=== PATIENT | male | born 1980 | race African-American/Black ===

== ENCOUNTER 2017-11-04 22:09 | Inpatient (IN) ==
[2017-11-04] MEDS ORDERED: Naloxone Inj 2 MG/2 ML Vial IV.PUSH ONE (22:59)
[2017-11-04] MEDS ORDERED: Sod Chloride 0.9% Inj 1,000 ML IV.SIG ONE ×3 (23:07→23:45)
--- NOTE | 2017-11-04 23:07 | ED ---
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) Severity: severe Consistency of symptoms: getting worse Context: drug abuse Associated symptoms: denies other symptoms Related Data Home Medications Medication Instructions Recorded Confirmed Unable to Obtain Home Meds 11/05/17 11/05/17 Allergies Allergy/AdvReac Type Severity Reaction Status Date / Time No Allergy Information Allergy Unverified 11/05/17 02:16 Available Review of Systems ROS: all other systems reviewed are negative [facility] Social History Social History Recent Travel in [facility] within the Last 8 Weeks: No Recent Out of Country Travel within the Last 8 Weeks: No Exam Narrative Exam Narrative: GENERAL: male with no signs of life SKIn: dry, no lacerations/wounds noted. HEAD: Normocephalic. EYES: pupil dilated, fixed, no corneal reflex ENT: No nasal bleeding or discharge. Mucous membranes pink and moist. NECK: Trachea midline. No JVD. CARDIOVASCULAR: pulseless RESPIRATORY: apneic GASTROINTESTINAL: Abdomen soft, non-tender, nondistended. No rebound or guarding MUSCULOSKELETAL: Extremities without clubbing, cyanosis, or edema. No obvious deformities. NEUROLOGICAL: gcs 3t, Course Initial Documented Vital Signs Temperature 102.7 F H 11/04/17 22:19 Pulse Rate 132 H 11/04/17 22:19 Respiratory Rate 20 11/04/17 22:19 Pulse Oximetry 85 L 11/04/17 22:19 Last Documented Vital Signs Temperature 102.7 F H 11/04/17 22:35 Pulse Rate 135 H 11/04/17 22:50 Respiratory Rate 20 11/05/17 01:36 Blood Pressure 106/56 L 11/04/17 22:50 Pulse Oximetry 93 L 11/05/17 02:24 Procedures Intubation Sedative: none Laryngoscope: Jagjit (mac4) ET Tube Size: 7.5 ET Tube Uncuffed: Yes Tube Secured Depth (cm): 23 Tube Secured Location: lips Tube Placement Confirmation: visualized tube passing through cords Patient Tolerated Procedure: well Intubation Complications: none Additional Comments: directly supervised intubation by [place] Bang Critical Care Time Critical Care Time: Yes Total Critical Care Time: 60 Attestation: Aggregate critical care time was 60 minutes. Time to perform other separately billable procedures was not included in the critical care time. My time did not include minutes spent treating any other patients simultaneously or on activities that did not directly contribute to the patient's treatment. The services I provided to this patient were to treat and/or prevent clinically significant deterioration that could result in: [Patient was actively in full arrest without any interventions this patient would have within 5 minutes as he presented apneic pulseless and in asystole] I provided critical care services requiring my management, as noted below: Chart data review, documentation time, medication orders and management, vital sign assessments/reviewing monitor data, ordering and reviewing lab tests, ordering and interpreting/reviewing x-rays and diagnostic studies, care of the patient and discussion of the patient with the admitting physicians. NIH Stroke Scale NIH Stroke Scale Level of Consciousness: 3-Coma / Unresponsive Orientation Questions: 2-Neither task correct Responds to Commands: 2-Neither task correct Facial Movement: 0-Normal Motor Functions Arm LEFT: 3-No effort against gravity Motor Functions Arm RIGHT: 3-No effort against gravity Motor Functions Leg LEFT: 3-No effort against gravity Motor Functions Leg RIGHT: 3-No effort against gravity Sensory Loss: 2-Severe sensory loss Best Language: 3-Mute or global aphasia Articulation: UN-Intubated / Barriers Extinction or Inattention Sensory: 2-Loss 2 modalities Total: 26 Medical Decision Making MDM Narrative Medical decision making narrative: Chest x-ray read by radiologist show left basilar atelectasis versus airspace disease CT head has not been performed due to the patient's instability and unable to transfer to CT suite yet CBC shows no leukocytosis, no left shift, no anemia however some mild degree of hemoconcentration is noted, normal platelet count Coagulation profile is within normal limits Blood gas revealed acidosis with hypercapnia oxygen level PaO2 is 330 while on vent----patient's respiratory rate was adjusted increased to 18 to increase minute ventilation, as well as 2 amps of bicarb were given IV Elevated troponin 0.09 Elevated total CPK of 1648, elevated CK-MB, suggestive of non-STEMI Elevated sodium at 151, elevated potassium of 5.4, decreased GFR at 30, creatinine decrease I am sorry increase at 2.84 consistent with decrease activity Elevated ALT of 126 AST of 139 most likely consistent with shock liver secondary to arrest Ammonia elevated at 410 most consistent with shocky liver UA was noted for the presence of sperm, some bacteria as well as protein and RBCs. Tox screen was positive for cocaine Negative serum alcohol ct showed subarachnoid hemorrhage Differential Diagnosis Differential Diagnosis: Intracranial hemorrhage versus tox related cardiac arrest versus rhabdo versus STEMI versus non-STEMI versus dysrhythmia versus noncardiogenic pulmonary edema Lab Data Lab results reviewed: Yes I reviewed the patient's lab results. Result diagrams: 11/04/17 23:20 11/04/17 23:20 Lab Results 11/04/17 11/04/17 11/04/17 Range/Units 23:15 23:20 23:20 WBC 6.8 (4.0-11.0) th/mm3 RBC 5.16 (4.50-5.90) mil/mm3 Hgb 16.8 (13.0-17.0) gm/dL Hct 52.4 H (39.0-51.0) % MCV 101.7 H (80.0-100.0) fL MCH 32.5 (27.0-34.0) pg MCHC 32.0 (32.0-36.0) % RDW 16.0 (11.6-17.2) % Plt Count 405 (150-450) th/mm3 MPV 9.1 (7.0-11.0) fL Neut % (Auto) 49.7 (16.0-70.0) % Lymph % (Auto) 39.0 (9.0-44.0) % [place] % (Auto) 10.5 H (0.0-8.0) % Eos % (Auto) 0.4 (0.0-4.0) % Baso % (Auto) 0.4 (0.0-2.0) % Neut # (Auto) 3.4 (1.8-7.7) th/mm3 Lymph # (Auto) 2.6 (1.0-4.8) th/mm3 [place] # (Auto) 0.7 (0.0-0.9) th/mm3 Eos # (Auto) 0.0 (0.0-0.4) th/mm3 Baso # (Auto) 0.0 (0.0-0.2) th/mm3 WBC Differential . Differential Comment Auto diff final PT (9.8-11.6) sec INR Ratio APTT (24.3-30.1) sec Puncture Site Left radial Patient Temperature 98.6 O2 Saturation 98 (90-100) % ABG pH 6.99 L* (7.380-7.420) ABG pCO2 66 H* (38-42) mmHg ABG pO2 330 H (61-120) mmHg ABG HCO3 15 L* (22-26) mmol/L ABG O2 Content 18.1 (12.0-20.0) Vol % ABG Base Excess -14.6 L (-2-2) mmol/L ABG Methemoglobin 0.9 (0-2) % Dmitry Test Present Hemoglobin 12.6 (12.0-16.0) G/DL Carboxyhemoglobin 0.2 (0-4) % O2 Delivery Device Vent Vent Setting Prvc/ac Inspired O2 100 % Critical Value Yes Sodium 151 H (136-145) meq/L Potassium 5.4 H (3.5-5.1) meq/L Chloride 108 H (98-107) meq/L Carbon Dioxide 14.3 L (21.0-32.0) meq/L Anion Gap 29 H (5-15) meq/L BUN 9 (7-18) mg/dL Creatinine 2.84 H (0.60-1.30) mg/dL Estimated GFR 30 L (>89) mL/min Random Glucose 102 (74-106) mg/dL Calcium 11.5 H (8.5-10.1) mg/dL Total Bilirubin 1.1 H (0.2-1.0) mg/dL AST 139 H (15-37) U/L ALT 126 H (12-78) U/L Alkaline Phosphatase 93 (45-117) U/L Ammonia (11-32) mcmol/L Total Creatine Kinase 1648 H (39-308) U/L CK-MB (CK-2) 4.8 H (0.5-3.6) ng/mL CK-MB (CK-2) % 0.3 (0.0-4.0) % Troponin I 0.09 H (0.02-0.05) ng/mL Total Protein 9.7 H (6.4-8.2) g/dL Albumin 4.8 (3.4-5.0) g/dL TSH 1.130 (0.358-3.740) uIU/mL Urine Color (Yellw/Straw) Urine Clarity (Clear) Urine pH (5.0-8.5) Ur Specific [place] (1.002-1.035) Urine Protein (Neg-Trace) mg/dL Urine Glucose (UA) (Negative) mg/dL Urine Ketones (Negative) mg/dL Urine Occult Blood (Negative) Urine Nitrate (Negative) Urine Bilirubin (Negative) Urine Urobilinogen (Less than 2) mg/dL Ur Leukocyte Esterase (Negative) Urine RBC (0-3) /hpf Urine WBC (0-5) /hpf Amorphous Sediment (None) /hpf Urine Bacteria (None) /hpf Hyaline Casts (0-3) /lpf Urine Mucus (Occasional) /lpf Urine Sperm (None) /hpf Micro UA Comment Urine Culture Comments Urine Opiates Screen (Neg) Ur Barbiturates Screen (Neg) Ur Amphetamines Screen (Neg) U Benzodiazepines Scrn (Neg) Urine Cocaine Screen (Neg) U Cannabinoids Screen (Neg) Serum Alcohol 7 H (0-5) mg/dL Blood Type Blood Type Recheck Antibody Screen 11/04/17 11/04/17 11/04/17 Range/Units 23:20 23:20 23:20 WBC (4.0-11.0) th/mm3 RBC (4.50-5.90) mil/mm3 Hgb (13.0-17.0) gm/dL Hct (39.0-51.0) % MCV (80.0-100.0) fL MCH (27.0-34.0) pg MCHC (32.0-36.0) % RDW (11.6-17.2) % Plt Count (150-450) th/mm3 MPV (7.0-11.0) fL Neut % (Auto) (16.0-70.0) % Lymph % (Auto) (9.0-44.0) % [place] % (Auto) (0.0-8.0) % Eos % (Auto) (0.0-4.0) % Baso % (Auto) (0.0-2.0) % Neut # (Auto) (1.8-7.7) th/mm3 Lymph # (Auto) (1.0-4.8) th/mm3 [place] # (Auto) (0.0-0.9) th/mm3 Eos # (Auto) (0.0-0.4) th/mm3 Baso # (Auto) (0.0-0.2) th/mm3 WBC Differential Differential Comment PT (9.8-11.6) sec INR Ratio APTT (24.3-30.1) sec Puncture Site Patient Temperature O2 Saturation (90-100) % ABG pH (7.380-7.420) ABG pCO2 (38-42) mmHg ABG pO2 (61-120) mmHg ABG HCO3 (22-26) mmol/L ABG O2 Content (12.0-20.0) Vol % ABG Base Excess (-2-2) mmol/L ABG Methemoglobin (0-2) % Dmitry Test Hemoglobin (12.0-16.0) G/DL Carboxyhemoglobin (0-4) % O2 Delivery Device Vent Setting Inspired O2 % Critical Value Sodium (136-145) meq/L Potassium (3.5-5.1) meq/L Chloride (98-107) meq/L Carbon Dioxide (21.0-32.0) meq/L Anion Gap (5-15) meq/L BUN (7-18) mg/dL Creatinine (0.60-1.30) mg/dL Estimated GFR (>89) mL/min Random Glucose (74-106) mg/dL Calcium (8.5-10.1) mg/dL Total Bilirubin (0.2-1.0) mg/dL AST (15-37) U/L ALT (12-78) U/L Alkaline Phosphatase (45-117) U/L Ammonia 410 H (11-32) mcmol/L Total Creatine Kinase (39-308) U/L CK-MB (CK-2) (0.5-3.6) ng/mL CK-MB (CK-2) % (0.0-4.0) % Troponin I (0.02-0.05) ng/mL Total Protein (6.4-8.2) g/dL Albumin (3.4-5.0) g/dL TSH (0.358-3.740) uIU/mL Urine Color (Yellw/Straw) Urine Clarity (Clear) Urine pH (5.0-8.5) Ur Specific [place] (1.002-1.035) Urine Protein (Neg-Trace) mg/dL Urine Glucose (UA) (Negative) mg/dL Urine Ketones (Negative) mg/dL Urine Occult Blood (Negative) Urine Nitrate (Negative) Urine Bilirubin (Negative) Urine Urobilinogen (Less than 2) mg/dL Ur Leukocyte Esterase (Negative) Urine RBC (0-3) /hpf Urine WBC (0-5) /hpf Amorphous Sediment (None) /hpf Urine Bacteria (None) /hpf Hyaline Casts (0-3) /lpf Urine Mucus (Occasional) /lpf Urine Sperm (None) /hpf Micro UA Comment Urine Culture Comments Urine Opiates Screen Neg (Neg) Ur Barbiturates Screen Neg (Neg) Ur Amphetamines Screen Neg (Neg) U Benzodiazepines Scrn Neg (Neg) Urine Cocaine Screen Pos H (Neg) U Cannabinoids Screen Neg (Neg) Serum Alcohol (0-5) mg/dL Blood Type O Positive Blood Type Recheck Required Antibody Screen Negative 11/04/17 11/04/17 Range/Units 23:20 23:54 WBC (4.0-11.0) th/mm3 RBC (4.50-5.90) mil/mm3 Hgb (13.0-17.0) gm/dL Hct (39.0-51.0) % MCV (80.0-100.0) fL MCH (27.0-34.0) pg MCHC (32.0-36.0) % RDW (11.6-17.2) % Plt Count (150-450) th/mm3 MPV (7.0-11.0) fL Neut % (Auto) (16.0-70.0) % Lymph % (Auto) (9.0-44.0) % [place] % (Auto) (0.0-8.0) % Eos % (Auto) (0.0-4.0) % Baso % (Auto) (0.0-2.0) % Neut # (Auto) (1.8-7.7) th/mm3 Lymph # (Auto) (1.0-4.8) th/mm3 [place] # (Auto) (0.0-0.9) th/mm3 Eos # (Auto) (0.0-0.4) th/mm3 Baso # (Auto) (0.0-0.2) th/mm3 WBC Differential Differential Comment PT 13.7 H (9.8-11.6) sec INR 1.4 Ratio APTT 27.5 (24.3-30.1) sec Puncture Site Patient Temperature O2 Saturation (90-100) % ABG pH (7.380-7.420) ABG pCO2 (38-42) mmHg ABG pO2 (61-120) mmHg ABG HCO3 (22-26) mmol/L ABG O2 Content (12.0-20.0) Vol % ABG Base Excess (-2-2) mmol/L ABG Methemoglobin (0-2) % Dmitry Test Hemoglobin (12.0-16.0) G/DL Carboxyhemoglobin (0-4) % O2 Delivery Device Vent Setting Inspired O2 % Critical Value Sodium (136-145) meq/L Potassium (3.5-5.1) meq/L Chloride (98-107) meq/L Carbon Dioxide (21.0-32.0) meq/L Anion Gap (5-15) meq/L BUN (7-18) mg/dL Creatinine (0.60-1.30) mg/dL Estimated GFR (>89) mL/min Random Glucose (74-106) mg/dL Calcium (8.5-10.1) mg/dL Total Bilirubin (0.2-1.0) mg/dL AST (15-37) U/L ALT (12-78) U/L Alkaline Phosphatase (45-117) U/L Ammonia (11-32) mcmol/L Total Creatine Kinase (39-308) U/L CK-MB (CK-2) (0.5-3.6) ng/mL CK-MB (CK-2) % (0.0-4.0) % Troponin I (0.02-0.05) ng/mL Total Protein (6.4-8.2) g/dL Albumin (3.4-5.0) g/dL TSH (0.358-3.740) uIU/mL Urine Color [place] (Yellw/Straw) Urine Clarity Cloudy H (Clear) Urine pH 6.0 (5.0-8.5) Ur Specific [place] 1.028 (1.002-1.035) Urine Protein 100 H (Neg-Trace) mg/dL Urine Glucose (UA) Negative (Negative) mg/dL Urine Ketones Trace (Negative) mg/dL Urine Occult Blood Negative (Negative) Urine Nitrate Negative (Negative) Urine Bilirubin Negative (Negative) Urine Urobilinogen 4 or greater (Less than 2) mg/dL Ur Leukocyte Esterase Negative (Negative) Urine RBC 16 H (0-3) /hpf Urine WBC 21 H (0-5) /hpf Amorphous Sediment Few H (None) /hpf Urine Bacteria Occasional H (None) /hpf Hyaline Casts 35 (0-3) /lpf Urine Mucus Many H (Occasional) /lpf Urine Sperm Occasional H (None) /hpf Micro UA Comment Cath-culture ind Urine Culture Comments Cath-cult indicated Urine Opiates Screen (Neg) Ur Barbiturates Screen (Neg) Ur Amphetamines Screen (Neg) U Benzodiazepines Scrn (Neg) Urine Cocaine Screen (Neg) U Cannabinoids Screen (Neg) Serum Alcohol (0-5) mg/dL Blood Type Blood Type Recheck Antibody Screen Imaging Data Radiologist's impression: Chest X-Ray 11/04/17 22:59 CONCLUSION: Left basilar atelectasis versus airspace disease. Head CT 11/05/17 22:59 CONCLUSION: 1. Subarachnoid hemorrhage and cerebral edema suspected. . ECG Data EKG Prior to Arrival: No Attestation: I personally reviewed and interpreted this ECG as follows: Prior ECG tracings: not available for review Interpretation: Initial EKG shows sinus tachycardia 133, with diffuse ST depressions throughout all leads with the exception of V1 were ST elevation was noted but no ST elevations noted on V2. A repeat EKG with posterior leads was not were performed in which no ST elevations were noted therefore no evidence of any posterior MN was noted. Discharge Plan Discharge Disposition Patient Disposition: 30 Still Patient Discharge Condition Condition: Critical Discharge Details Diagnosis: Cardiopulmonary arrest with successful resuscitation, Cocaine abuse with intoxication, Acute renal insufficiency, Rhabdomyolysis, Non-ST elevated myocardial infarction (non-STEMI), Acute spontaneous subarachnoid intracranial hemorrhage Physicians Team ED Provider: Luis Zayas Primary Care Provider: Primary Care Jen Hodges Attending Provider: Frankie Cast ED Status: Admitted Patient
[2017-11-04] MEDS ORDERED: Sodium Bicarbonate 8.4% Inj 50 MEQ/50 ML Syringe IV.PUSH ONE (23:29)
[2017-11-04 23:42] LABS: Baso % (Auto) 0.4 % (0.0-2.0); Eos % (Auto) 0.4 % (0.0-4.0); Hematocrit 52.4 % (39.0-51.0); Hemoglobin 16.8 gm/dL (13.0-17.0); Lymph # (Auto) 2.6 th/mm3 (1.0-4.8); Mean Corpuscular Hemoglobin 32.5 pg (27.0-34.0); Mean Corpuscular Volume 101.7 fL (80.0-100.0); Mean Platelet Volume 9.1 fL (7.0-11.0); Mono # (Auto) 0.7 th/mm3 (0.0-0.9); Mono % (Auto) 10.5 % (0.0-8.0); Neut # (Auto) 3.4 th/mm3 (1.8-7.7); Neut % (Auto) 49.7 % (16.0-70.0); Platelet Count 405 th/mm3 (150-450); Red Blood Count 5.16 mil/mm3 (4.50-5.90); White Blood Count 6.8 th/mm3 (4.0-11.0)
--- NOTE | 2017-11-04 23:42 | XR ---
EXAM DATE: 11/04/2017 11:33 PM EDT AGE/SEX: 37 years / Male INDICATIONS: Post intubation. CLINICAL DATA: This is the patient's initial encounter. Patient reports that signs and symptoms have been present for 1 day and indicates a pain score of 0/10. MEDICAL/SURGICAL HISTORY: None. None. COMPARISON: [facility] [place], CHEST SINGLE AP, 01/29/2016. . FINDINGS: There is patchy atelectasis or airspace disease in the left lower lobe. Cardiomediastinal silhouette is unremarkable. Endotracheal tube tip terminates 2.4 cm above the xavi. The osseous structures are intact. CONCLUSION: Left basilar atelectasis versus airspace disease. Electronically signed by: Jordi Chua MD 11/04/2017 11:41 PM EDT
[2017-11-04] MEDS ORDERED: DOPamine 800 MG/500 ML Premix 800 MG/500 ML PLAST..BAG IV.CONT PRN (23:45)
[2017-11-04 23:49] LABS: Amphetamine Screen,Urine Neg (Neg); Barbiturate Screen,Urine Neg (Neg); Cannabinoid Screen,Urine Neg (Neg); Cocaine Screen,Urine Pos (Neg)
[2017-11-04 23:51] LABS: ABG Base Excess -14.6 mmol/L (-2-2); ABG PCO2 66 mmHg (38-42); ABG PO2 330 mmHg (61-120)
[2017-11-04 23:52] LABS: Amorphous Sediment,Urine Few /hpf; Bacteria,Urine Occasional /hpf; Bilirubin,Urine Negative (Negative); Clarity,Urine Cloudy (Clear); Color,Urine Amber (Yellw/Straw); Glucose,Urine (UA) Negative (Negative); Hyaline Casts,Urine 35 /lpf (0-3); Leukocyte Esterase,Urine Negative (Negative); Mucus,Urine Many /lpf (Occasional); Nitrite,Urine Negative (Negative); Opiate Screen,Urine Neg (Neg); Specific Gravity,Urine 1.028 (1.002-1.035); Sperm,Urine Occasional /hpf; Urobilinogen,Urine 4 or Greater mg/dL (Less than 2)
[2017-11-05] LABS: Albumin 4.8 g/dL (3.4-5.0); Anion Gap 29 meq/L (5-15); Aspartate Aminotransferase 139 U/L (15-37); Blood Urea Nitrogen 9 mg/dL (7-18); Calcium 11.5 mg/dL (8.5-10.1); Carbon Dioxide 14.3 meq/L (21.0-32.0); Chloride 108 meq/L (98-107); Glomerular Filtration Rate 30 mL/min (>89); Glucose,Random 102 mg/dL (74-106); Potassium 5.4 meq/L (3.5-5.1); Sodium 151 meq/L (136-145)
[2017-11-05 00:06] LABS: Alcohol 7 mg/dL (0-5)
[2017-11-05 00:09] LABS: Activated Partial Thrombo Time 27.5 sec (24.3-30.1); INR 1.4 Ratio; Prothrombin Time 13.7 sec (9.8-11.6)
[2017-11-05 00:15] LABS: Alanine Aminotransferase 126 U/L (12-78); Alkaline Phosphatase 93 U/L (45-117); Creatine Kinase 1648 U/L (39-308); Total Protein 9.7 g/dL (6.4-8.2); Troponin I 0.09 ng/mL (0.02-0.05)
[2017-11-05 00:27] LABS: CKMB Percent 0.3 % (0.0-4.0); Creatine Kinase MB 4.8 ng/mL (0.5-3.6)
[2017-11-05] MEDS ORDERED: Acetaminophen 325 MG Tablet PO PRN (01:26)
[2017-11-05] MEDS ORDERED: Sod Chloride 0.9% Inj 1,000 ML IV.CONT SCH (01:30)
--- NOTE | 2017-11-05 02:12 | P.HPCC ---
History of Present Illness Service: critical care medicine Primary Care Physician: No Primary Care Physician Chief Complaint: cardiac arrest, cocaine positive History of Present Illness: 37-year-old male who was brought to the ER by police officers. Per police officers they were called to the scene for patient for person that apparently was breaking and entering yelling "its not my gun" repetitive and jumpy/excited/agitated....once they placed him in coppersmith helper cruiser he started kicking the doors, very violent....once he arrived to [facility] entrance, patient was being placed in restraints, and once placed on guerney he went "Limp" and cpr was started by brazing machine feeder. Patient was intubated by ER physician and ACLS protocol was continued for asystole. He had return of spontaneous circulation following 20 minutes of CPR/ACLS. Patient was hypotensive following return of spontaneous circulation and received 3 L normal saline bolus and was started on dopamine for pressor support. He had a GCS of 3T per ER physician subsequently and was placed on mechanical ventilation. Patient was positive for cocaine on his tox screen. He was accepted for admission by critical care medicine service. When I evaluated him in the ER he was comatose, orally intubated on mechanical ventilation. History was obtained by reviewing records and discussion with ER physician and nursing staff. Inpatient Certification: I certify that the inpatient services were ordered in accordance with Medicare regulations governing the order. This includes certification that hospital inpatient services are reasonable and necessary and in the case of services not specified as inpatient-only under 42 CFR 419.22(n), that they are appropriately provided as inpatient services in accordance to with the 2-midnight benchmark under 43 CFR 412.3(e) Estimated Total Length of Stay (Days): 7 Plans for Post Hospital Care: Not yet determined Review of Systems unobtainable due to endotracheal tube PMFSH - Travel History Recent Travel in the [place] Within the Last 8 Weeks: No Recent Travel Out of the Country Within the Last 8 Weeks: No Medications and Allergies Active Medications: Active Medications Acetaminophen (Tylenol) 650 mg PO Q6H PRN PRN Reason: PAIN 1-10 AND/OR FEVER >101F Albuterol (Duoneb Neb (Minerva)) 1 ampul NEB Q6HR NEB MINERVA Chlorhexidine Gluconate (Chlorhexidine 2% Cloth) 3 pack TOPICAL DAILY@0400 MINERVA Stop: 11/10/17 03:59 Chlorhexidine Gluconate (Chlorhexidine 2% Cloth) 3 pack TOPICAL DAILY@0400 PRN PRN Reason: Extra cloth needed Stop: 11/10/17 03:59 Famotidine (Pepcid) 20 mg NG/OG BID [facility] Norepinephrine Bitartrate (Levophed-Dextrose 4 Mg/250 Ml Drip) 4 mg in 250 mls @ 7.5 mls/hr IV.SIG TITRATE PRN; Protocol PRN Reason: Per Protocol Dopamine HCl/Dextrose (Dopamine 800 Mg/500 Ml Premix) 800 mg in 500 mls @ 8.438 mls/hr IV.CONT TITRATE PRN; Protocol PRN Reason: Per Protocol Sodium Chloride (Ns Inj) 1,000 mls @ 125 mls/hr IV.CONT .Q8H [facility] Sodium Chloride (Ns Flush) 2 ml IV.FLUSH PRN PRN PRN Reason: FLUSH AFTER USING IV ACCESS Terbutaline Sulfate (Brethine Inj) 1 mg SQ UNSCH PRN PRN Reason: For Extravasation Terbutaline Sulfate (Brethine Inj) 1 mg SQ ONCE PRN PRN Reason: Extravasation Allergies Allergy/AdvReac Type Severity Reaction Status Date / Time No Allergy Information Allergy Unverified 11/05/17 01:17 Available Home Medications Medication Instructions Recorded Confirmed Type Unable to Obtain Home Meds 11/05/17 11/05/17 History Results - Labs CBC & Chem 7: 11/04/17 23:20 11/04/17 23:20 Labs: Short CBC 11/04/17 Range/Units 23:20 WBC 6.8 (4.0-11.0) th/mm3 Hgb 16.8 (13.0-17.0) gm/dL Hct 52.4 H (39.0-51.0) % Plt Count 405 (150-450) th/mm3 BMP 11/04/17 23:20 Sodium 151 H Potassium 5.4 H Chloride 108 H Carbon Dioxide 14.3 L BUN 9 Creatinine 2.84 H Calcium 11.5 H Cardiac Enzymes 11/04/17 Range/Units 23:20 Total Creatine Kinase 1648 H (39-308) U/L CK-MB (CK-2) 4.8 H (0.5-3.6) ng/mL Troponin I 0.09 H (0.02-0.05) ng/mL Liver Function 11/04/17 Range/Units 23:20 Total Bilirubin 1.1 H (0.2-1.0) mg/dL AST 139 H (15-37) U/L ALT 126 H (12-78) U/L Alkaline Phosphatase 93 (45-117) U/L Albumin 4.8 (3.4-5.0) g/dL Urine 11/04/17 Range/Units 23:20 Urine Color Hailee (Yellw/Straw) Urine Clarity Cloudy H (Clear) Urine pH 6.0 (5.0-8.5) Ur Specific [place] 1.028 (1.002-1.035) Urine Protein 100 H (Neg-Trace) mg/dL Urine Glucose (UA) Negative (Negative) mg/dL - Imaging Impressions Chest X-Ray 11/04/17 22:59 CONCLUSION: Left basilar atelectasis versus airspace disease. Exam Vital signs: Vital Signs 11/04/17 22:19 11/04/17 22:35 11/04/17 22:53 Temperature 102.7 F H Pulse Rate 132 H 150 H Respiratory Rate 20 20 14 Blood Pressure 100/51 L Pulse Oximetry 85 L 94 L 11/05/17 00:26 Temperature Pulse Rate Respiratory Rate 18 Blood Pressure Pulse Oximetry 94 L Intake & Output 11/04/17 11/04/17 11/05/17 06:59 18:59 06:59 Weight 75 kg Narrative: HEENT/ Neuro: Comatose, orally intubated, pupils 3mm bilaterally, reacting actively to light. No pallor, no icterus, tongue/ mucosa dry Neck: No JVD Chest/Pulm: on mech vent, good air entry bilaterally, no wheezing or crackles CVS: S1-S2 regular, no murmur GI/abdomen: soft, nontender, bowel sounds sluggish Extremities: warm bilaterally, no edema Caprini VTE Risk Assessment Caprini VTE Risk Assessment: Moderate/High Risk (score >= 2) Caprini Risk Assessment Model: Point Value = 1 Point Value = 2 Point Value = 3 Point Value = 5 Age 41-60 Minor surgery BMI > 25 kg/m2 Swollen legs Varicose veins or History of unexplained or recurrent spontaneous Oral contraceptives or hormone replacement Sepsis (< 1 month) Serious lung disease, including pneumonia (< 1 month) Abnormal pulmonary function Acute myocardial infarction Congestive heart failure (< 1 month) History of inflammatory bowel disease Medical patient at bed rest Age 61-74 Arthroscopic surgery Major open surgery (> 45 min) Laparoscopic surgery (> 45 min) Malignancy Confined to bed (> 72 hours) Immobilizing plaster cast Central venous access Age >= 75 History of VTE Family history of VTE Factor V Leiden Prothrombin [id number] Lupus anticoagulant Anticardiolipin antibodies Elevated serum homocysteine Heparin-induced thrombocytopenia Other congenital or acquired thrombophilia Stroke (< 1 month) Elective arthroplasty Hip, pelvis, or leg fracture Acute spinal cord injury (< 1 month) Prophylaxis Regimen: Total Risk Factor Score Risk Level Prophylaxis Regimen 0-1 Low Early ambulation 2 Moderate Order ONE of the following: *Sequential Compression Device (SCD) *Heparin 5000 units SQ BID 3-4 Higher Order ONE of the following medications: *Heparin 5000 units SQ TID *Enoxaparin/Lovenox 40 mg SQ daily (WT < 150 kg, CrCl > 30 mL/min) *Enoxaparin/Lovenox 30 mg SQ daily (WT < 150 kg, CrCl > 10-29 mL/min) *Enoxaparin/Lovenox 30 mg SQ BID (WT < 150 kg, CrCl > 30 mL/min) AND/OR *Sequential Compression Device (SCD) 5 or more Highest Order ONE of the following medications: *Heparin 5000 units SQ TID (Preferred with Epidurals) *Enoxaparin/Lovenox 40 mg SQ daily (WT < 150 kg, CrCl > 30 mL/min) *Enoxaparin/Lovenox 30 mg SQ daily (WT < 150 kg, CrCl > 10-29 mL/min) *Enoxaparin/Lovenox 30 mg SQ BID (WT < 150 kg, CrCl > 30 mL/min) AND *Sequential Compression Device (SCD) Assessment and Plan - Assessment and Plan Plan: 37-year-old male with: Encephalopathy Cocaine positive Cardiac arrest status post CPR (asystole) Possible hypoxic encephalopathy Hypotension Acute respiratory failure on mechanical ventilation Metabolic acidosis is probably secondary to hyperlipidemia following cardiac arrest. EtOH positive Plan: Neuro: Follow neuro status. If required may use propofol for sedation. Cocaine positive. Check CT head to evaluate for ICH Cardiovascular: Status post multiple fluid boluses. On dopamine for hypotension. Will transition to Levophed for pressor support. 2D echo in a.m. to assess LV function. Follow cardiac enzymes. Pulmonary: Continue mechanical ventilation, vent bundle, bronchodilators as needed. Hyperventilating for metabolic acidosis. GI/liver: N.P.o. for now. Renal/: IV hydration, strict intake output, monitor and replete electrolytes, follow BUN/creatinine. ID: No antibiotics at this time. Endocrine: Watch for hypoglycemia, SSI for glycemic control if needed. Heme: Follow CBC and coags. Prophylaxis: Pepcid/SCDs. Lovenox if head CT negative for bleed. Condition critical. Time spent on critical care excluding procedures 50 minutes
--- NOTE | 2017-11-05 02:54 | CT ---
EXAM DATE: 11/05/2017 2:32 AM EDT AGE/SEX: 37 years / Male INDICATIONS: Altered mental status. CLINICAL DATA: This is the patient's initial encounter. Patient reports that signs and symptoms have been present for 1 day and indicates a pain score of Nonresponsive. MEDICAL/SURGICAL HISTORY: Non-responsive. Non-responsive. RADIATION DOSE: 56.35 CTDI (mGy) COMPARISON: No prior exams available for comparison. TECHNIQUE: CT of the head without contrast. Using automated exposure control and adjustment of the mA and/or kV according to patient size, radiation dose was kept as low as reasonably achievable to ob tain optimal diagnostic quality images. DICOM format image data is available electronically for revi ew and comparison. FINDINGS: No fractures are seen. NG tube appears coiled in the nasopharynx. There are no fractures. There is di ffuse effacement of the cortical sulci concerning for cerebral edema. There is high attenuation in th e subarachnoid spaces and along the tentorium characteristic of subarachnoid hemorrhage. The ventricl es are mildly narrowed. No masses are seen. CONCLUSION: 1. Subarachnoid hemorrhage and cerebral edema suspected. . Electronically signed by: Jordi Chua MD 11/05/2017 2:53 AM EDT
[2017-11-05] MEDS: Norepinephrine Inj 4 MG in Sodium Chlor 0.9% Inj 246 ML IV.SIG PRN ×2 (03:00→05:53)
[2017-11-05] MEDS: Phenylephrine Inj 40 MG in Sodium Chlor 0.9% Inj 496 ML IV.CONT PRN ×3 (03:00→07:55)
[2017-11-05] MEDS: DOPamine Inj 800 MG in Sodium Chlor 0.9% Inj 500 ML IV.CONT PRN ×2 (03:00→19:02)
[2017-11-05] MEDS ORDERED: Norepinephrine Inj 4 MG/4 ML Ampul ONE (03:05)
[2017-11-05] MEDS ORDERED: Sodium Bicarbonate 8.4% Inj 50 MEQ/50 ML Syringe IV.PUSH ONE ×2 (03:30→07:00)
[2017-11-05 03:39] LABS: ABG Base Excess -6.2 mmol/L (-2-2); ABG PCO2 33 mmHg (38-42); ABG PO2 205 mmHg (61-120)
--- NOTE | 2017-11-05 03:43 | P.PCN ---
Date of procedure: 11/05/17 Pre-op diagnosis: Cardiac arrest, subarachnoid hemorrhage, hypotension Procedure: PROCEDURE PERFORMED Left subclavian vein central venous catheter placement PREOPERATIVE DIAGNOSIS Cardiac arrest, hypotension, subarachnoid hemorrhag, POSTOPERATIVE DIAGNOSIS Same INDICATIONS Hypotension requiring pressors INFORMED CONSENT Informed consent not obtained as this was an emergent procedure and patient unable to consent ANESTHESIA 1% Lidocaine for local infiltration anesthesia. PROCEDURE After sterile prepping and draping using 1% lidocaine for local infiltration anesthesia, the left subclavian vein was cannulated using an introducer needle with dark non-pulsatile blood return following which a guidewire was passed through the introducer needle into the left subclavian vein without any resistance and the needle was then removed. After making a skin angus and dilation of tract, a 20 cm antimicrobial coated triple lumen catheter was passed over the guidewire by modified Seldinger technique into the left subclavian vein up to the 18 cm maynor and the guidewire was then removed. Good blood return obtained through all three ports which were then flushed and capped. After securing the catheter in place with a stat lock, a Bio-occlusive dressing with Biopatch was applied to the site. The patient tolerated the procedure well with no immediate complications noted. A postprocedure chest x-ray was ordered and reviewed with good placement of left subclavian central venous catheter with tip overlying SVC. No pneumothorax on post-procedure film. Pathology: none sent Condition: critical
[2017-11-05] MEDS ORDERED: Chlorhexidine Gluconate 2% 1 Pack (2 Cloths) TOPICAL PRN (04:00)
[2017-11-05] MEDS ORDERED: Vasopressin Inj 40 UNIT in Sodium Chlor 0.9% Inj 98 ML IV.CONT PRN (04:15)
--- NOTE | 2017-11-05 04:36 | P.PCN ---
Date of procedure: 11/05/17 Pre-op diagnosis: Cardiac arrest, subarachnoid hemorrhage, hypotension Post-op diagnosis: same Procedure: Procedure: Right femoral artery catheter placement Anesthesia used: 1% lidocaine for local infiltration anesthesia Procedure: After sterile prepping and draping using 1% lidocaine for local infiltration anesthesia, right femoral artery was visualized using ultrasound vessel finder and under direct visualization was cannulated using an introducer needle with bright pulsatile blood return. A guidewire was passed through the introducer needle without any resistance and a 12 cm 20-gauge arterial catheter was passed over the guidewire into the right femoral artery and the guidewire was then removed and catheter was connected to transducer tubing with good waveform being obtained on the monitor. Patient tolerated procedure well. Catheter was secured in place with a suture and a Bioclusive dressing with Biopatch was applied to the site. Anesthesia: local Pathology: none sent
[2017-11-05] MEDS ORDERED: Sodium Chloride 23.4% Inj 240 MEQ in Syringe/Bag 1 EACH IV.SIG ONE (04:42)
[2017-11-05] MEDS ORDERED: DOPamine 800 MG/500 ML Premix 800 MG/500 ML PLAST..BAG IV.CONT ONE (05:00)
[2017-11-05] MEDS ORDERED: Sodium Bicarbonate 8.4% Inj 50 MEQ/50 ML Syringe IV.CONT ONE (05:00)
[2017-11-05] MEDS ORDERED: Sodium Chlor 0.9% Inj 250 ML IV.SIG SCH (05:00)
[2017-11-05] MEDS ORDERED: Naloxone Inj 4 MG/10 ML MDV IV.PUSH ONE (05:00)
--- NOTE | 2017-11-05 05:17 | XR ---
EXAM DATE: 11/05/2017 5:02 AM EDT AGE/SEX: 37 years / Male INDICATIONS: Central line placement CLINICAL DATA: This is the patient's initial encounter. Patient reports that signs and symptoms have been present for 1 day and indicates a pain score of Nonresponsive. MEDICAL/SURGICAL HISTORY: None. None. COMPARISON: [facility] [place], CHEST 1V SINGLE AP, 11/04/2017. . FINDINGS: Right subclavian line tip overlies the SVC. Enteric tube courses beneath the diaphragm. There is patc hy left basilar airspace disease. Osseous structures are intact. No pneumothorax. CONCLUSION: Left basilar airspace disease. Electronically signed by: Jordi Chua MD 11/05/2017 5:16 AM EDT
[2017-11-05 05:32] LABS: Albumin 2.6 g/dL (3.4-5.0); Calcium 5.4 mg/dL (8.5-10.1); Carbon Dioxide 20.8 meq/L (21.0-32.0); Potassium 4.8 meq/L (3.5-5.1); Total Protein 5.8 g/dL (6.4-8.2)
[2017-11-05 05:37] LABS: Hematocrit 44.6 % (39.0-51.0); Hemoglobin 14.5 gm/dL (13.0-17.0); Mean Corpuscular HGB Conc 32.5 % (32.0-36.0); Mean Corpuscular Hemoglobin 31.4 pg (27.0-34.0); Mean Corpuscular Volume 96.6 fL (80.0-100.0); Mean Platelet Volume 8.3 fL (7.0-11.0); Platelet Count 143 th/mm3 (150-450); Red Blood Count 4.62 mil/mm3 (4.50-5.90); Red Cell Distribution Width 15.4 % (11.6-17.2); White Blood Count 12.9 th/mm3 (4.0-11.0)
[2017-11-05] MEDS: Vasopressin Inj 40 UNIT in Sodium Chlor 0.9% Inj 98 ML IV.CONT SCH ×2 (05:46→19:19)
[2017-11-05] MEDS: Chlorhexidine Gluconate 2% 1 Pack (2 Cloths) TOPICAL SCH (05:47)
[2017-11-05] MEDS ORDERED: Calcium Chloride Inj 1 GM/10 ML Syringe IV.PUSH ONE ×2 (07:00→09:00)
[2017-11-05 07:02] LABS: Fibrinogen 50 mg/dL (227-377)
--- NOTE | 2017-11-05 07:13 | P.PNCC ---
Subjective Subjective Remarks/Hospital Course: 37-year-old male who was brought to the ER by police officers. Per police officers they were called to the scene for patient for person that apparently was breaking and entering yelling "its not my gun" repetitive and jumpy/excited/ agitated....once they placed him in supervisor blueprinting and photocopy cruiser he started kicking the doors, very violent....once he arrived to the [facility] entrance, patient was being placed in restraints, and once placed on guerney he went "Limp" and cpr was started by theater education teacher. Patient was intubated by ER physician and ACLS protocol was continued for asystole. He had return of spontaneous circulation following 20 minutes of CPR/ACLS. Patient was hypotensive following return of spontaneous circulation and received 3 L normal saline bolus and was started on dopamine for pressor support. He had a GCS of 3T per ER physician subsequently and was placed on mechanical ventilation. Patient was positive for cocaine on his tox screen. He was accepted for admission by critical care medicine service. When I evaluated him in the ER he was comatose, orally intubated on mechanical ventilation. History was obtained by reviewing records and discussion with ER physician and nursing staff. 11/05/17: Critical care re evaluation: patient remains extremely critical. He is currently on maximum dose of Levophed, dopamine, Jevon-Synephrine. CT of the head at night had shown subarachnoid hemorrhage and cerebral edema. Clinical exam is concerning for severe anoxic brain injury. GCS remains 3T off all sedation. I am unable to elicit pupillary or corneal reflex and no doll's eye. Labs indicate profound DIC Objective Vital Signs / I&O: Vital Signs 11/04/17 22:19 11/04/17 22:20 11/04/17 22:35 Temperature 102.7 F H 102.7 F H Pulse Rate 132 H 150 H Respiratory Rate 20 20 20 Blood Pressure 100/51 L Pulse Oximetry 85 L 85 L 94 L 11/04/17 22:36 11/04/17 22:40 11/04/17 22:50 Temperature Pulse Rate 143 H 135 H Respiratory Rate 20 20 Blood Pressure 102/54 L 106/56 L Pulse Oximetry 94 L 92 L 90 L 11/04/17 22:53 11/04/17 23:00 11/04/17 23:30 Temperature Pulse Rate 132 H 140 H Respiratory Rate 14 14 14 Blood Pressure 73/37 L 95/52 L Pulse Oximetry 91 L 93 L 11/05/17 00:00 11/05/17 00:26 11/05/17 01:00 Temperature Pulse Rate 134 H 132 H Respiratory Rate 14 18 18 Blood Pressure 112/57 L 113/59 L Pulse Oximetry 92 L 94 L 90 L 11/05/17 01:30 11/05/17 01:36 11/05/17 02:00 Temperature Pulse Rate 128 H 122 H Respiratory Rate 18 20 18 Blood Pressure 94/55 L 95/52 L Pulse Oximetry 90 L 92 L 92 L 11/05/17 02:24 11/05/17 04:00 11/05/17 05:14 Temperature 104 F H Pulse Rate 131 H 124 H Respiratory Rate 20 20 Blood Pressure 97/90 L Pulse Oximetry 93 L 97 94 L 11/05/17 06:08 11/05/17 06:14 Temperature 101.5 F H Pulse Rate 122 H Respiratory Rate 18 20 Blood Pressure 135/86 Pulse Oximetry Intake & Output 11/04/17 11/05/17 11/05/17 18:59 06:59 18:59 Intake Total 850 / 850 Output Total 275 / 275 Balance 575 / 575 Weight 87.2 kg Intake: IV 850 / 850 Neosynephrine Inj 40 MG In NS 500 / 500 Inj 496 ML @ 40 MCG/MIN 30 mls/ hr IV.CONT TITRATE PRN Rx#: [id number] Ofirmev Inj 1,000 mg In 100 ml 100 / 100 @ 400 mls/hr IV.SIG Q8H PRN Rx# :[id number] Levophed Inj 4 MG In NS Inj 246 250 / 250 ML @ 2 MCG/MIN 7.5 mls/hr IV. SIG TITRATE PRN Rx#:[id number] Intake (Blood Product) Amt 0 / 0 Plasma Thawed 5 Day Cp2d Unit 0 / 0 [id number] Output: Urine Amount (Catheter) 75 / 75 Indwelling Urethral Catheter 75 / 75 Gastric Drainage 200 / 200 Oral 200 / 200 Result Diagrams: 11/05/17 05:12 11/05/17 04:20 Objective Remarks: GEN: Comatose patient critically ill, currently on maximum doses of 3 pressors. HEENT orally intubated,No pallor, no icterus, profusely bleeding from mouth and nostrils Neck: No JVD Chest/Pulm: on mech vent, good air entry bilaterally, no wheezing or crackles. No spontaneous breath noted CVS: S1-S2 regular, no murmur. Currently on Levophed at 30 mcg/min, Jevon- Synephrine at 300 mcg/kg/min, dopamine at 10 mcg/kg/min GI/abdomen: soft, nontender, Extremities: warm bilaterally, skin diaphoretic NEURO: Patient remains unresponsive comatose, GCS 3 T. Pupils about 4 mm nonreactive. No corneal reflex, no doll's eye, no withdrawal to deep pain no reflexes. No spontaneous breathing above the vent Assessment and Plan - Assessment and Plan Plan: 37-year-old male with: ASSESSMENT: Severe anoxic brain injury Anoxic encephalopathy Cardiac arrest status post CPR (asystole) Acute subarachnoid hemorrhage Cerebral edema Refractory shock Severe metabolic acidosis/lactic acidosis Acute respiratory failure on mechanical ventilation Acute kidney failure Severe DIC Hypocalcemia EtOH positive/Cocaine positive Shock liver PLAN: Neuro: -GCS remains 3T without any sedation. Clinical exam concerning for severe anoxic brain injury -Check EEG. At this time there is no evidence of brainstem activity -Add Keppra for seizure prophylaxis -Currently on normal saline 84 mL/h, 3% at 40 mL/h -Keep sodium 150-155 -Hold further doses of mannitol due to acute kidney failure -Cocaine positive. -Neurosurgery Dr. Wright Cardiovascular: -Status post multiple fluid (4L NS) boluses. -Currently on Levophed, dopamine, Jevon-Synephrine at maximum doses -2D echo in a.m. to assess LV function. Follow cardiac enzymes. -Initiate Efrain Trac monitoring Pulmonary: -Continue mechanical ventilation, vent bundle, bronchodilators as needed. -Continue hyperventilating for metabolic acidosis. -Send sputum culture GI/liver: -N.P.o. for now. IV famotidine -Severe transaminitis secondary to shock liver Renal/: -IV hydration, strict intake output, monitor and replete electrolytes, follow BUN/creatinine. -Nephrology consulted, check UA, check renal ultrasound ID: -No antibiotics at this time. Endocrine: -Watch for hypoglycemia, SSI for glycemic control if needed. Heme: -Severe coagulopathy secondary to DIC and liver failure -Transfuse 4 units FFP, 2 cryoprecipitate Prophylaxis: -Pepcid/SCDs. Chemical DVT prophylaxis contraindicated Currently patient is very critical with guarded prognosis. Clinically he appears to have sustained severe anoxic brain injury as evidenced by clinical exam and cerebral edema. Neurosurgery consult pending for subarachnoid hemorrhage. However he is not an operative candidate. He is in profound shock , on maximum dose of 3 pressors. Chance of survival minimal to Nil at this time. I will get palliative care also involved Additional CCT 55 MIN Code Status: Full
[2017-11-05 07:37] LABS: ABG Base Excess -8.7 mmol/L (-2-2); ABG PCO2 38 mmHg (38-42); ABG PO2 214 mmHg (61-120)
[2017-11-05] MEDS ORDERED: Multivitamin Inj 10 ML, Thiamine Inj 100 MG, Folic Acid Inj 1 MG in Sodium Chlor 0.9% I... IV.SIG SCH (09:00)
[2017-11-05] MEDS ORDERED: Famotidine 20 MG Tablet NG/OG SCH ×2 (09:00→21:00)
--- NOTE | 2017-11-05 11:07 | P.CONNS ---
History of Present Illness Service: Neurosurgery Consult date: 11/05/17 Requesting Physician: Frankie Cast Reason for Consult: Anoxic brain insult with edema Primary Care Provider: No Primary Care Physician Family Provider: No Primary Care Physician Chief Complaint: cardiac arrest, cocaine positive History of Present Illness: 37-year-old -[place] gentleman who was brought to [facility] with cardiac arrest and asystole and required fluid resuscitation along with multiple vasopressors and was subsequently revived but is requiring multiple vasopressors for hemodynamic support. He has remained Lizz Coma Score of 3 unresponsive despite resuscitation and subsequently also developed DIC syndrome with severe coagulopathy. CT scan of the head reveals diffuse anoxic insult and edema and questionable area of increased hyperdensity overlying the tentorium which could be related to a normal finding given the hypodensities from the diffuse anoxia versus a small area of hemorrhage. Review of Systems unobtainable due to endotracheal tube PMFSH - Medical / Surgical Hx Neg / Unobtainable Medical Problems Denied: Unable to Obtain Surgical History: Unable to Obtain - Tobacco History Smoking Status: Unknown if ever smoked - Alcohol History How Often Do You Have a Drink Containing Alcohol: Unable to Obtain - Substance Use History Substance History: Unable to Obtain - Travel History Recent Travel in the [place] Within the Last 8 Weeks: No Recent Travel Out of the Country Within the Last 8 Weeks: No - Immunization History Tetanus Immunization: Unable to Assess Hx Influenza Vaccine This Season: Unable to Assess Medications and Allergies Active Medications: Active Medications Acetaminophen (Tylenol) 650 mg PO Q6H PRN PRN Reason: PAIN 1-10 AND/OR FEVER >101F Albuterol (Duoneb Neb (Steve)) 1 ampul NEB Q6HR NEB STEVE Last Admin: 11/05/17 09:51 Dose: 1 ampul Chlorhexidine Gluconate (Chlorhexidine 2% Cloth) 3 pack TOPICAL DAILY@0400 STEVE Stop: 11/10/17 03:59 Last Admin: 11/05/17 05:47 Dose: 3 pack Chlorhexidine Gluconate (Chlorhexidine 2% Cloth) 3 pack TOPICAL DAILY@0400 PRN PRN Reason: Extra cloth needed Stop: 11/10/17 03:59 Famotidine (Pepcid) 10 mg NG/OG BID STEVE Sodium Chloride (Ns Inj) 1,000 mls @ 125 mls/hr IV.CONT .Q8H [facility] Last Admin: 11/05/17 03:00 Dose: 125 mls/hr Acetaminophen (Ofirmev Inj) 1,000 mg in 100 mls @ 400 mls/hr IV.SIG Q8H PRN PRN Reason: TEMPERATURE > 101 F Last Infusion: 11/05/17 03:45 Dose: Infused Sodium Chloride (Sodium Chloride 3% Inj) 500 mls @ 40 mls/hr IV.SIG CONT ONE Stop: 11/05/17 16:05 Last Admin: 11/05/17 05:15 Dose: 40 mls/hr Vasopressin 40 unit/ Sodium (Chloride) 100 mls @ 6 mls/hr IV.CONT CONT STEVE; Protocol Last Admin: 11/05/17 05:46 Dose: 0.04 units/min, 6 mls/hr Dopamine HCl 800 mg/ Sodium (Chloride) 520 mls @ 8.77 mls/hr IV.CONT TITRATE PRN; Protocol PRN Reason: See Protocol Last Admin: 11/05/17 03:00 Dose: 15 mcg/kg/min, 43.87 mls/hr Phenylephrine HCl 40 mg/ (Sodium Chloride) 500 mls @ 30 mls/hr IV.CONT TITRATE PRN; Protocol PRN Reason: See Protocol Last Admin: 11/05/17 05:16 Dose: 300 mcg/min, 225 mls/hr Sodium Chloride (Ns Inj) 250 mls @ 15 mls/hr IV.SIG ONCE STEVE Stop: 11/05/17 21:39 Last Admin: 11/05/17 09:05 Dose: 15 mls/hr Levetiracetam 500 mg/ Sodium (Chloride) 105 mls @ 400 mls/hr IV.SIG Q12H STEVE Last Admin: 11/05/17 09:05 Dose: 400 mls/hr Multivitamins 10 ml/ Thiamine HCl 100 mg/ Folic Acid 1 mg/Sodium Chloride 511.2 mls @ 125 mls/hr IV.SIG Q24H STEVE Stop: 11/07/17 13:06 Last Admin: 11/05/17 10:39 Dose: 125 mls/hr Norepinephrine Bitartrate 16 (mg/ Sodium Chloride) 250 mls @ 1.87 mls/hr IV.CONT TITRATE PRN; Protocol PRN Reason: See Protocol Phenylephrine HCl 160 mg/ (Sodium Chloride) 500 mls @ 7.5 mls/hr IV.CONT TITRATE PRN; Protocol PRN Reason: See protol Sodium Chloride (Ns Flush) 2 ml IV.FLUSH PRN PRN PRN Reason: FLUSH AFTER USING IV ACCESS Terbutaline Sulfate (Brethine Inj) 1 mg SQ UNSCH PRN PRN Reason: For Extravasation Allergies Allergy/AdvReac Type Severity Reaction Status Date / Time No Allergy Information Allergy Unverified 11/05/17 02:16 Available Home Medications Medication Instructions Recorded Confirmed Type Unable to Obtain Home Meds 11/05/17 11/05/17 History Exam Vital signs: Vital Signs 11/04/17 22:19 11/04/17 22:20 11/04/17 22:35 Temperature 102.7 F H 102.7 F H Pulse Rate 132 H 150 H Respiratory Rate 20 20 20 Blood Pressure 100/51 L Pulse Oximetry 85 L 85 L 94 L 11/04/17 22:36 11/04/17 22:40 11/04/17 22:50 Temperature Pulse Rate 143 H 135 H Respiratory Rate 20 20 Blood Pressure 102/54 L 106/56 L Pulse Oximetry 94 L 92 L 90 L 11/04/17 22:53 11/04/17 23:00 11/04/17 23:30 Temperature Pulse Rate 132 H 140 H Respiratory Rate 14 14 14 Blood Pressure 73/37 L 95/52 L Pulse Oximetry 91 L 93 L 11/05/17 00:00 11/05/17 00:26 11/05/17 01:00 Temperature Pulse Rate 134 H 132 H Respiratory Rate 14 18 18 Blood Pressure 112/57 L 113/59 L Pulse Oximetry 92 L 94 L 90 L 11/05/17 01:30 11/05/17 01:36 11/05/17 02:00 Temperature Pulse Rate 128 H 122 H Respiratory Rate 18 20 18 Blood Pressure 94/55 L 95/52 L Pulse Oximetry 90 L 92 L 92 L 11/05/17 02:24 11/05/17 03:30 11/05/17 04:00 Temperature 104 F H Pulse Rate 131 H Respiratory Rate 20 20 Blood Pressure 97/90 L Pulse Oximetry 93 L 94 L 97 11/05/17 05:14 11/05/17 06:08 11/05/17 06:14 Temperature 101.5 F H Pulse Rate 124 H 122 H Respiratory Rate 20 18 20 Blood Pressure 135/86 Pulse Oximetry 94 L 11/05/17 08:34 11/05/17 08:39 11/05/17 09:22 Temperature 98.6 F 98.6 F 97.6 F Pulse Rate 115 H 113 H 105 H Respiratory Rate 20 20 20 Blood Pressure 117/76 111/71 115/73 Pulse Oximetry 11/05/17 09:47 11/05/17 09:51 11/05/17 09:52 Temperature 97 F L Pulse Rate 104 H 104 H Respiratory Rate 20 20 20 Blood Pressure 126/75 Pulse Oximetry 11/05/17 10:20 11/05/17 10:21 Temperature Pulse Rate 102 H Respiratory Rate 20 20 Blood Pressure Pulse Oximetry 90 L Intake & Output 11/04/17 11/05/17 11/05/17 18:59 06:59 18:59 Intake Total 850 / 850 1053 / 1053 Output Total 275 / 275 Balance 575 / 575 1053 / 1053 Weight 87.2 kg Intake: IV 850 / 850 Neosynephrine Inj 40 MG In NS 500 / 500 Inj 496 ML @ 40 MCG/MIN 30 mls/ hr IV.CONT TITRATE PRN Rx#: [id number] Ofirmev Inj 1,000 mg In 100 ml 100 / 100 @ 400 mls/hr IV.SIG Q8H PRN Rx# :[id number] Levophed Inj 4 MG In NS Inj 246 250 / 250 ML @ 2 MCG/MIN 7.5 mls/hr IV. SIG TITRATE PRN Rx#:[id number] Intake (Blood Product) Amt 0 / 0 1053 / 1053 Plasma Thawed 5 Day Cp2d Unit 0 / 0 358 / 358 [id number] Plasma Thawed 5 Day Cp2d Unit 0 / 0 [id number] Plasma Thawed 5 Day Cp2d Unit 250 / 250 [id number] Pre-Pooled Cryo Thawed 10units 224 / 224 Unit [id number] Pre-Pooled Cryo Thawed 10units 221 / 221 Unit [id number] Output: Urine Amount (Catheter) 75 / 75 Indwelling Urethral Catheter 75 / 75 Gastric Drainage 200 / 200 Oral 200 / 200 - Constitutional obtunded - Routine HEENT Exam Head: Present: normocephalic, atraumatic, hematoma (Active bleeding from the mouth around endotracheal tube) Eye: Present: periorbital swelling ENT: Present: mucous membranes moist, nares patent - Routine Neck Exam Present: supple, full ROM, trachea midline - Routine Chest/Breast/Axilla Exam Chest wall: Present: tenderness (Active bleeding from left subclavian insertion site) - Routine Respiratory Exam Present: patient mechanically ventilated - Routine Cardiovascular Exam Present: S1, S2, tachycardia - Routine Abdominal Exam Present: soft, distended, firm - Routine Extremities Exam Present: edema, full ROM - Routine Skin Exam Present: intact - Routine Neurological Exam Does not open eyes to painful stimulation Right pupil 5 mm and nonreactive and the left pupil 4 mm and nonreactive Negative corneal reflex Negative doll's reflex Negative cold caloric response Negative gag reflex Negative cough reflex No spontaneous respirations noted No motor movement to central painful stimulation in the upper or lower extremities - Detailed Neurological Exam: Coma Scale Eye Opening: None Verbal Response: None Motor Response: None [place] Coma Scale Total: 3 Results - Laboratory Findings CBC and BMP: 11/05/17 05:12 11/05/17 04:20 Abnormal lab findings: Abnormal Labs 11/04/17 11/04/17 11/04/17 23:15 23:20 23:20 WBC Hct 52.4 H MCV 101.7 H Plt Count [place] % (Auto) 10.5 H PT INR APTT Fibrinogen ABG pH 6.99 L* ABG pCO2 66 H* ABG pO2 330 H ABG HCO3 15 L* ABG Base Excess -14.6 L Sodium 151 H Potassium 5.4 H Chloride 108 H Carbon Dioxide 14.3 L Anion Gap 29 H Creatinine 2.84 H Estimated GFR 30 L Random Glucose Osmolality Calcium 11.5 H Prot Corrected Calcium Total Bilirubin 1.1 H AST 139 H ALT 126 H Alkaline Phosphatase Ammonia Total Creatine Kinase 1648 H CK-MB (CK-2) 4.8 H Troponin I 0.09 H Total Protein 9.7 H Albumin Urine Clarity Urine Protein Urine RBC Urine WBC Amorphous Sediment Urine Bacteria Urine Mucus Urine Sperm Urine Cocaine Screen Serum Alcohol 7 H 11/04/17 11/04/17 11/04/17 23:20 23:20 23:20 WBC Hct MCV Plt Count [place] % (Auto) PT INR APTT Fibrinogen ABG pH ABG pCO2 ABG pO2 ABG HCO3 ABG Base Excess Sodium Potassium Chloride Carbon Dioxide Anion Gap Creatinine Estimated GFR Random Glucose Osmolality Calcium Prot Corrected Calcium Total Bilirubin AST ALT Alkaline Phosphatase Ammonia 410 H Total Creatine Kinase CK-MB (CK-2) Troponin I Total Protein Albumin Urine Clarity Cloudy H Urine Protein 100 H Urine RBC 16 H Urine WBC 21 H Amorphous Sediment Few H Urine Bacteria Occasional H Urine Mucus Many H Urine Sperm Occasional H Urine Cocaine Screen Pos H Serum Alcohol 11/04/17 11/05/17 11/05/17 23:54 03:29 04:20 WBC Hct MCV Plt Count [place] % (Auto) PT 13.7 H INR APTT Fibrinogen ABG pH 7.36 L ABG pCO2 33 L ABG pO2 205 H ABG HCO3 18 L ABG Base Excess -6.2 L Sodium Potassium Chloride Carbon Dioxide Anion Gap Creatinine Estimated GFR Random Glucose Osmolality 322 H Calcium Prot Corrected Calcium Total Bilirubin AST ALT Alkaline Phosphatase Ammonia Total Creatine Kinase CK-MB (CK-2) Troponin I Total Protein Albumin Urine Clarity Urine Protein Urine RBC Urine WBC Amorphous Sediment Urine Bacteria Urine Mucus Urine Sperm Urine Cocaine Screen Serum Alcohol 11/05/17 11/05/17 11/05/17 04:20 05:12 05:45 WBC 12.9 H D Hct MCV Plt Count 143 L D Warrick % (Auto) PT Greater than 180.0 H D INR Greater than 18.2 H* APTT 97.0 H* D Fibrinogen 50 L* ABG pH ABG pCO2 ABG pO2 ABG HCO3 ABG Base Excess Sodium Potassium Chloride Carbon Dioxide 20.8 L Anion Gap Creatinine 3.61 H Estimated GFR 23 L Random Glucose 65 L Osmolality Calcium 5.4 L* D Prot Corrected Calcium 5.9 L* Total Bilirubin 1.5 H AST 6608 H ALT 2599 H Alkaline Phosphatase 123 H Ammonia Total Creatine Kinase CK-MB (CK-2) Troponin I Total Protein 5.8 L D Albumin 2.6 L D Urine Clarity Urine Protein Urine RBC Urine WBC Amorphous Sediment Urine Bacteria Urine Mucus Urine Sperm Urine Cocaine Screen Serum Alcohol 11/05/17 05:53 WBC Hct MCV Plt Count War[place] % (Auto) PT INR APTT Fibrinogen ABG pH 7.27 L* ABG pCO2 ABG pO2 214 H ABG HCO3 17 L ABG Base Excess -8.7 L Sodium Potassium Chloride Carbon Dioxide Anion Gap Creatinine Estimated GFR Random Glucose Osmolality Calcium Prot Corrected Calcium Total Bilirubin AST ALT Alkaline Phosphatase Ammonia Total Creatine Kinase CK-MB (CK-2) Troponin I Total Protein Albumin Urine Clarity Urine Protein Urine RBC Urine WBC Amorphous Sediment Urine Bacteria Urine Mucus Urine Sperm Urine Cocaine Screen Serum Alcohol - Diagnostic Findings Additional findings: Impressions Chest X-Ray 11/04/17 22:59 CONCLUSION: Left basilar atelectasis versus airspace disease. Chest X-Ray 11/05/17 02:58 CONCLUSION: Left basilar airspace disease. Head CT 11/05/17 22:59 CONCLUSION: 1. Subarachnoid hemorrhage and cerebral edema suspected. . On my personal review of the CT of the head he has a diffuse anoxic cerebral swelling with loss of jaffe and white matter differentiation; because of the hypodensities from the anoxic insult tentorium appears to be more hyperdense and there is a questionable small area of hemorrhage overlying the tentorium Assessment and Plan - Assessment (1) Brain anoxic injury Code(s): G93.1 - Anoxic brain damage, not elsewhere classified Status: Acute (2) Anoxic cerebral edema Code(s): G93.6 - Cerebral edema; R09.02 - Hypoxemia Status: Acute (3) DIC (disseminated intravascular coagulation) Code(s): D65 - Disseminated intravascular coagulation [defibrination syndrome] Status: Acute (4) Cardiopulmonary arrest with successful resuscitation Code(s): I46.9 - Cardiac arrest, cause unspecified Status: Acute (5) Cocaine abuse with intoxication Code(s): F14.129 - Cocaine abuse with intoxication, unspecified Status: Acute - Plan 37-year-old -[place] gentleman who presented with a cardiac arrest and was resuscitated and requiring multiple vasopressor support. His GCS has remained [address] scan of the head reveals diffuse cerebral anoxic injury with swelling. He is also developed significant coagulopathy with the DIC syndrome. Neurologic examination is consistent with loss of all brainstem reflexes. This appears to be a nonsurvivable insult and there is no role for neurosurgical intervention. Further treatment plan as per advertising representative/neurologist.
--- NOTE | 2017-11-05 12:15 | MG ---
cc: Isaac Mcdonald MD EEG NUMBER: [id number] NOTE: Subarachnoid hemorrhage, cerebral edema. Cocaine. CPR. FINDINGS: The entire recording is of extremely low amplitude. There may be some very low-amplitude beta rhythm versus just background noise. I cannot say that I see any definite brain activity, although this could be medication effect. IMPRESSION: Very low background consistent with a diffuse encephalopathy. How much could be medication effect is hard to say. I would not put it down as brain right now. Clinical correlation is needed. No focal abnormality was noted. No seizure activity was seen. Photic stimulation was performed without any posterior driving. MD CLAUDE Carlos/TAVO , 12:03 PM , 12:09 PM
[2017-11-05 12:48] LABS: INR 2.4 Ratio; Prothrombin Time 24.5 sec (9.8-11.6)
[2017-11-05] MEDS: Phenylephrine Inj 160 MG in Sodium Chlor 0.9% Inj 484 ML IV.CONT PRN (12:49)
[2017-11-05] MEDS: Norepinephrine Inj 16 MG in Sodium Chlor 0.9% Inj 234 ML IV.CONT PRN ×2 (12:49→19:45)
[2017-11-05 12:50] LABS: Activated Partial Thrombo Time 42.5 sec (24.3-30.1)
[2017-11-05 13:06] LABS: Hematocrit 32.4 % (39.0-51.0); Hemoglobin 10.7 gm/dL (13.0-17.0); Mean Corpuscular Hemoglobin 32.4 pg (27.0-34.0); Mean Corpuscular Volume 98.2 fL (80.0-100.0); Mean Platelet Volume 8.9 fL (7.0-11.0); Platelet Count 103 th/mm3 (150-450); Red Cell Distribution Width 15.7 % (11.6-17.2); White Blood Count 10.3 th/mm3 (4.0-11.0)
[2017-11-05 13:18] LABS: Albumin 2.6 g/dL (3.4-5.0); Calcium 7.3 mg/dL (8.5-10.1); Carbon Dioxide 16.4 meq/L (21.0-32.0); Total Protein 5.7 g/dL (6.4-8.2)
[2017-11-05 13:20] LABS: Potassium 4.3 meq/L (3.5-5.1)
[2017-11-05] MEDS: Dextrose 5%/NaCl 0.9% Inj 1,000 ML IV.SIG SCH ×2 (13:25→23:49)
--- NOTE | 2017-11-05 15:11 | P.CONNP ---
<Chantal Churchill - Last Filed: 11/05/17 14:55> History of Present Illness Service: Nephrology Consult date: 11/05/17 (Seen at 1030) Reason for Consult: Acute Renal Failure Primary Care Provider: No Primary Care Physician Family Provider: No Primary Care Physician Chief Complaint: cardiac arrest, cocaine positive History of Present Illness: This is a 35 y/o male brought in for aggressive behavior. Apparently he was shouting in the ER, had witnessed cardiac arrest, had CPR x 30 min. Upon ROSC he was bradycardic, intubated, and taken to [facility]. CT head shows subarachnoid hemorrhage and cerebral edema. His labs have significant abnormalities including Creatinine 2.8 (increased to 3.61), BUN 15, K 5.4 (now 4.8), Na 151 ( now 143). His AST and ALT are also significantly elevated. His labs also suggesting DIC. He is bleeding from his nose and mouth, and urine is unusual color, appears pink/orange in color, but may be due to hematuria. Overnight he was transfused with cryoprecipitate and plasma. He is on 3% NS at 40 cc/hr. The patient is currently hypotensive on pressors including Levophed, dopamine, phenylephrine, vasopressin. He is on the vent at 100% FiO2. We were consulted for renal management. His prognosis per the third helper is very poor. Review of Systems unobtainable due to endotracheal tube PMFSH - Medical / Surgical Hx Neg / Unobtainable Medical Problems Denied: Unable to Obtain Surgical History: Unable to Obtain - Tobacco History Smoking Status: Unknown if ever smoked - Alcohol History How Often Do You Have a Drink Containing Alcohol: Unable to Obtain - Substance Use History Substance History: Unable to Obtain - Travel History Recent Travel in the [place] Within the Last 8 Weeks: No Recent Travel Out of the Country Within the Last 8 Weeks: No - Immunization History Tetanus Immunization: Unable to Assess Hx Influenza Vaccine This Season: Unable to Assess Medications and Allergies Allergies Allergy/AdvReac Type Severity Reaction Status Date / Time No Allergy Information Allergy Unverified 11/05/17 02:16 Available Home Medications Medication Instructions Recorded Confirmed Type Unable to Obtain Home Meds 11/05/17 11/05/17 History Active Medications: Active Medications Acetaminophen (Tylenol) 650 mg PO Q6H PRN PRN Reason: PAIN 1-10 AND/OR FEVER >101F Albuterol (Duoneb Neb (Minerva)) 1 ampul NEB Q6HR NEB MINERVA Last Admin: 11/05/17 09:51 Dose: 1 ampul Chlorhexidine Gluconate (Chlorhexidine 2% Cloth) 3 pack TOPICAL DAILY@0400 MINERVA Stop: 11/10/17 03:59 Last Admin: 11/05/17 05:47 Dose: 3 pack Chlorhexidine Gluconate (Chlorhexidine 2% Cloth) 3 pack TOPICAL DAILY@0400 PRN PRN Reason: Extra cloth needed Stop: 11/10/17 03:59 Famotidine (Pepcid) 10 mg NG/OG BID MINERVA Acetaminophen (Ofirmev Inj) 1,000 mg in 100 mls @ 400 mls/hr IV.SIG Q8H PRN PRN Reason: TEMPERATURE > 101 F Last Infusion: 11/05/17 03:45 Dose: Infused Sodium Chloride (Sodium Chloride 3% Inj) 500 mls @ 40 mls/hr IV.SIG CONT ONE Stop: 11/05/17 16:05 Last Admin: 11/05/17 05:15 Dose: 40 mls/hr Vasopressin 40 unit/ Sodium (Chloride) 100 mls @ 6 mls/hr IV.CONT CONT MINERVA; Protocol Last Admin: 11/05/17 05:46 Dose: 0.04 units/min, 6 mls/hr Dopamine HCl 800 mg/ Sodium (Chloride) 520 mls @ 8.77 mls/hr IV.CONT TITRATE PRN; Protocol PRN Reason: See Protocol Last Admin: 11/05/17 03:00 Dose: 15 mcg/kg/min, 43.87 mls/hr Phenylephrine HCl 40 mg/ (Sodium Chloride) 500 mls @ 30 mls/hr IV.CONT TITRATE PRN; Protocol PRN Reason: See Protocol Last Titration: 11/05/17 12:48 Dose: 150 mcg/min, 112.5 mls/hr Sodium Chloride (Ns Inj) 250 mls @ 15 mls/hr IV.SIG ONCE MINERVA Stop: 11/05/17 21:39 Last Admin: 11/05/17 09:05 Dose: 15 mls/hr Levetiracetam 500 mg/ Sodium (Chloride) 105 mls @ 400 mls/hr IV.SIG Q12H MINERVA Last Admin: 11/05/17 09:05 Dose: 400 mls/hr Multivitamins 10 ml/ Thiamine HCl 100 mg/ Folic Acid 1 mg/Sodium Chloride 511.2 mls @ 125 mls/hr IV.SIG Q24H [facility] Stop: 11/07/17 13:06 Last Admin: 11/05/17 10:39 Dose: 125 mls/hr Norepinephrine Bitartrate 16 (mg/ Sodium Chloride) 250 mls @ 1.87 mls/hr IV.CONT TITRATE PRN; Protocol PRN Reason: See Protocol Last Admin: 11/05/17 12:49 Dose: 2 mcg/min, 1.87 mls/hr Phenylephrine HCl 160 mg/ (Sodium Chloride) 500 mls @ 7.5 mls/hr IV.CONT TITRATE PRN; Protocol PRN Reason: See protol Last Admin: 11/05/17 12:49 Dose: 40 mcg/min, 7.5 mls/hr Dextrose/Sodium Chloride (D5w/Normal Saline Inj) 1,000 mls @ 125 mls/hr IV.SIG .Q8H [facility] Last Admin: 11/05/17 13:25 Dose: 125 mls/hr Sodium Chloride (Ns Flush) 2 ml IV.FLUSH PRN PRN PRN Reason: FLUSH AFTER USING IV ACCESS Terbutaline Sulfate (Brethine Inj) 1 mg SQ UNSCH PRN PRN Reason: For Extravasation Exam Vital signs: Vital Signs 11/04/17 22:19 11/04/17 22:20 11/04/17 22:35 Temperature 102.7 F H 102.7 F H Pulse Rate 132 H 150 H Respiratory Rate 20 20 20 Blood Pressure 100/51 L Pulse Oximetry 85 L 85 L 94 L 11/04/17 22:36 11/04/17 22:40 11/04/17 22:50 Temperature Pulse Rate 143 H 135 H Respiratory Rate 20 20 Blood Pressure 102/54 L 106/56 L Pulse Oximetry 94 L 92 L 90 L 11/04/17 22:53 11/04/17 23:00 11/04/17 23:30 Temperature Pulse Rate 132 H 140 H Respiratory Rate 14 14 14 Blood Pressure 73/37 L 95/52 L Pulse Oximetry 91 L 93 L 11/05/17 00:00 11/05/17 00:26 11/05/17 01:00 Temperature Pulse Rate 134 H 132 H Respiratory Rate 14 18 18 Blood Pressure 112/57 L 113/59 L Pulse Oximetry 92 L 94 L 90 L 11/05/17 01:30 11/05/17 01:36 11/05/17 02:00 Temperature Pulse Rate 128 H 122 H Respiratory Rate 18 20 18 Blood Pressure 94/55 L 95/52 L Pulse Oximetry 90 L 92 L 92 L 11/05/17 02:24 11/05/17 03:30 11/05/17 04:00 Temperature 104 F H Pulse Rate 131 H Respiratory Rate 20 20 Blood Pressure 97/90 L Pulse Oximetry 93 L 94 L 97 11/05/17 05:14 11/05/17 06:08 11/05/17 06:14 Temperature 101.5 F H Pulse Rate 124 H 122 H Respiratory Rate 20 18 20 Blood Pressure 135/86 Pulse Oximetry 94 L 11/05/17 08:00 11/05/17 08:34 11/05/17 08:39 Temperature 99 F 98.6 F 98.6 F Pulse Rate 104 H 115 H 113 H Respiratory Rate 20 20 20 Blood Pressure 100/61 117/76 111/71 Pulse Oximetry 11/05/17 09:22 11/05/17 09:47 11/05/17 09:51 Temperature 97.6 F Pulse Rate 105 H 104 H Respiratory Rate 20 20 20 Blood Pressure 115/73 Pulse Oximetry 11/05/17 09:52 11/05/17 10:20 11/05/17 10:21 Temperature 97 F L Pulse Rate 104 H 102 H Respiratory Rate 20 20 20 Blood Pressure 126/75 Pulse Oximetry 90 L 11/05/17 12:00 11/05/17 14:20 11/05/17 14:25 Temperature 95.7 F L 96.8 F L 96.8 F L Pulse Rate 99 H 106 H 105 H Respiratory Rate 20 20 20 Blood Pressure 133/81 104/59 L 104/62 Pulse Oximetry Intake & Output 11/04/17 11/05/17 11/05/17 18:59 06:59 18:59 Intake Total 850 / 850 1859 / 0 Output Total 275 / 275 Balance 575 / 575 1859 / 1859 Weight 87.2 kg Intake: IV 850 / 850 500 / 500 Neosynephrine Inj 40 MG In NS 500 / 500 500 / 500 Inj 496 ML @ 40 MCG/MIN 30 mls/ hr IV.CONT TITRATE PRN Rx#: [id number] Ofirmev Inj 1,000 mg In 100 ml 100 / 100 @ 400 mls/hr IV.SIG Q8H PRN Rx# :[id number] Levophed Inj 4 MG In NS Inj 246 250 / 250 ML @ 2 MCG/MIN 7.5 mls/hr IV. SIG TITRATE PRN Rx#:[id number] Intake (Blood Product) Amt 0 / 0 1360 / 1360 Plasma Thawed 5 Day Cp2d Unit 0 / 0 358 / 358 [id number] Plasma Thawed 5 Day Cp2d Unit 307 / 307 [id number] Plasma Thawed 5 Day Cp2d Unit 250 / 250 [id number] Pre-Pooled Cryo Thawed 10units 224 / 224 Unit [id number] Pre-Pooled Cryo Thawed 10units 221 / 221 Unit [id number] Pre-Pooled Cryo Thawed 10units 0 / 0 Unit [id number] Pre-Pooled Cryo Thawed 10units 0 / 0 Unit [id number] Output: Urine Amount (Catheter) 75 / 75 Indwelling Urethral Catheter 75 / 75 Gastric Drainage 200 / 200 Oral 200 / 200 - Constitutional average body habitus Comments: AAM, intubated, unresponsive. Bleeding from nose and mouth, and sihrley. - Routine HEENT Exam Head: Present: normocephalic Comments: bleeding from nose and mouth - Routine Neck Exam Absent: JVD, carotid bruit - Routine Respiratory Exam Present: patient mechanically ventilated, CTA bilaterally - Routine Cardiovascular Exam Present: RRR, S1, S2. Absent: murmur - Routine Abdominal Exam Present: soft, normoactive bowel sounds - Routine Extremities Exam Present: pulses intact. Absent: edema - Routine Skin Exam Present: intact, dry, warm - Routine Neurological Exam unresponsive off sedation - Routine Psychiatric Exam Present: unable to assess Results - Lab Results 11/05/17 11:55 11/05/17 11:55 Most recent lab results ABG pH 7.27 (7.380-7.420) L* 11/05/17 05:53 ABG pCO2 38 mmHg (38-42) 11/05/17 05:53 ABG pO2 214 mmHg (61-120) H 11/05/17 05:53 ABG HCO3 17 mmol/L (22-26) L 11/05/17 05:53 Calcium 7.3 mg/dL (8.5-10.1) L* D 11/05/17 11:55 Assessment and Plan - Assessment (1) Acute renal failure Code(s): N17.9 - Acute kidney failure, unspecified Status: Acute Plan: In 2016 his creatinine was 1.07 Most likely suffered ATN due to cardiac arrest and decreased renal perfusion He is making urine Renal function is declining. It is possible he may need dialysis. However given overall condition including need fo multiple pressors he most likely will not tolerate HD. In addition due to DIC it will be difficult and unsafe to place a vascath due to risk of bleeding. Avoid nephrotoxic agents Maintain MAP > 65mmHg. Repeat labs. Monitor urine output. (2) Cardiopulmonary arrest with successful resuscitation Code(s): I46.9 - Cardiac arrest, cause unspecified Status: Acute Plan: On pressors for BP support Most likely has anoxic brain injury Poor prognosis Continue supportive care (3) Acute spontaneous subarachnoid intracranial hemorrhage Code(s): I60.9 - Nontraumatic subarachnoid hemorrhage, unspecified Status: Acute Plan: Secondary to DIC On 3% saline due to cerebral edema Neurosurgery has evaluated. Poor prognosis, no brainstem reflexes on exam. - Plan Very poor prognosis, consider hospice consultation. Code Status: Full Discussed Condition With: Dr. Chamorro <Simon Carson - Last Filed: 11/05/17 17:07> History of Present Illness Primary Care Provider: No Primary Care Physician Family Provider: No Primary Care Physician Medications and Allergies Active Medications: Active Medications Acetaminophen (Tylenol) 650 mg PO Q6H PRN PRN Reason: PAIN 1-10 AND/OR FEVER >101F Albuterol (Duoneb Neb (Minerva)) 1 ampul NEB Q6HR NEB MINERVA Last Admin: 11/05/17 09:51 Dose: 1 ampul Chlorhexidine Gluconate (Chlorhexidine 2% Cloth) 3 pack TOPICAL DAILY@0400 [facility] Stop: 11/10/17 03:59 Last Admin: 11/05/17 05:47 Dose: 3 pack Chlorhexidine Gluconate (Chlorhexidine 2% Cloth) 3 pack TOPICAL DAILY@0400 PRN PRN Reason: Extra cloth needed Stop: 11/10/17 03:59 Famotidine (Pepcid) 10 mg NG/OG BID MINERVA Acetaminophen (Ofirmev Inj) 1,000 mg in 100 mls @ 400 mls/hr IV.SIG Q8H PRN PRN Reason: TEMPERATURE > 101 F Last Infusion: 11/05/17 03:45 Dose: Infused Sodium Chloride (Sodium Chloride 3% Inj) 500 mls @ 20 mls/hr IV.SIG CONT ONE Stop: 11/06/17 04:35 Last Infusion: 11/05/17 13:55 Dose: 20 mls/hr Vasopressin 40 unit/ Sodium (Chloride) 100 mls @ 6 mls/hr IV.CONT CONT MINERVA; Protocol Last Admin: 11/05/17 05:46 Dose: 0.04 units/min, 6 mls/hr Dopamine HCl 800 mg/ Sodium (Chloride) 520 mls @ 8.77 mls/hr IV.CONT TITRATE PRN; Protocol PRN Reason: See Protocol Last Titration: 11/05/17 16:45 Dose: 20 mcg/kg/min, 58.5 mls/hr Sodium Chloride (Ns Inj) 250 mls @ 15 mls/hr IV.SIG ONCE [facility]ERVA Stop: 11/05/17 21:39 Last Admin: 11/05/17 09:05 Dose: 15 mls/hr Levetiracetam 500 mg/ Sodium (Chloride) 105 mls @ 400 mls/hr IV.SIG Q12H [facility] Last Admin: 11/05/17 09:05 Dose: 400 mls/hr Multivitamins 10 ml/ Thiamine HCl 100 mg/ Folic Acid 1 mg/Sodium Chloride 511.2 mls @ 125 mls/hr IV.SIG Q24H [facility] Stop: 11/07/17 13:06 Last Admin: 11/05/17 10:39 Dose: 125 mls/hr Norepinephrine Bitartrate 16 (mg/ Sodium Chloride) 250 mls @ 1.87 mls/hr IV.CONT TITRATE PRN; Protocol PRN Reason: See Protocol Last Titration: 11/05/17 12:50 Dose: 30 mcg/min, 28.12 mls/hr Phenylephrine HCl 160 mg/ (Sodium Chloride) 500 mls @ 7.5 mls/hr IV.CONT TITRATE PRN; Protocol PRN Reason: See protol Last Titration: 11/05/17 16:41 Dose: 300 mcg/min, 56.25 mls/hr Dextrose/Sodium Chloride (D5w/Normal Saline Inj) 1,000 mls @ 125 mls/hr IV.SIG .Q8H [facility] Last Admin: 11/05/17 13:25 Dose: 125 mls/hr Sodium Chloride (Ns Flush) 2 ml IV.FLUSH PRN PRN PRN Reason: FLUSH AFTER USING IV ACCESS Terbutaline Sulfate (Brethine Inj) 1 mg SQ UNSCH PRN PRN Reason: For Extravasation Exam Vital signs: Vital Signs 11/04/17 22:19 11/04/17 22:20 11/04/17 22:35 Temperature 102.7 F H 102.7 F H Pulse Rate 132 H 150 H Respiratory Rate 20 20 20 Blood Pressure 100/51 L Pulse Oximetry 85 L 85 L 94 L 11/04/17 22:36 11/04/17 22:40 11/04/17 22:50 Temperature Pulse Rate 143 H 135 H Respiratory Rate 20 20 Blood Pressure 102/54 L 106/56 L Pulse Oximetry 94 L 92 L 90 L 11/04/17 22:53 11/04/17 23:00 11/04/17 23:30 Temperature Pulse Rate 132 H 140 H Respiratory Rate 14 14 14 Blood Pressure 73/37 L 95/52 L Pulse Oximetry 91 L 93 L 11/05/17 00:00 11/05/17 00:26 11/05/17 01:00 Temperature Pulse Rate 134 H 132 H Respiratory Rate 14 18 18 Blood Pressure 112/57 L 113/59 L Pulse Oximetry 92 L 94 L 90 L 11/05/17 01:30 11/05/17 01:36 11/05/17 02:00 Temperature Pulse Rate 128 H 122 H Respiratory Rate 18 20 18 Blood Pressure 94/55 L 95/52 L Pulse Oximetry 90 L 92 L 92 L 11/05/17 02:24 11/05/17 03:30 11/05/17 04:00 Temperature 104 F H Pulse Rate 131 H Respiratory Rate 20 20 Blood Pressure 97/90 L Pulse Oximetry 93 L 94 L 97 11/05/17 05:14 11/05/17 06:08 11/05/17 06:14 Temperature 101.5 F H Pulse Rate 124 H 122 H Respiratory Rate 20 18 20 Blood Pressure 135/86 Pulse Oximetry 94 L 11/05/17 08:00 11/05/17 08:34 11/05/17 08:39 Temperature 99 F 98.6 F 98.6 F Pulse Rate 104 H 115 H 113 H Respiratory Rate 20 20 20 Blood Pressure 100/61 117/76 111/71 Pulse Oximetry 11/05/17 09:22 11/05/17 09:47 11/05/17 09:51 Temperature 97.6 F Pulse Rate 105 H 104 H Respiratory Rate 20 20 20 Blood Pressure 115/73 Pulse Oximetry 11/05/17 09:52 11/05/17 10:20 11/05/17 10:21 Temperature 97 F L Pulse Rate 104 H 102 H Respiratory Rate 20 20 20 Blood Pressure 126/75 Pulse Oximetry 90 L 11/05/17 12:00 11/05/17 14:20 11/05/17 14:25 Temperature 95.7 F L 96.8 F L 96.8 F L Pulse Rate 99 H 106 H 105 H Respiratory Rate 20 20 20 Blood Pressure 133/81 104/59 L 104/62 Pulse Oximetry 11/05/17 16:00 Temperature 96.8 F L Pulse Rate 106 H Respiratory Rate 20 Blood Pressure 105/56 L Pulse Oximetry Intake & Output 11/04/17 11/05/17 11/05/17 18:59 06:59 18:59 Intake Total 850 / 850 2308 / 2308 Output Total 275 / 275 Balance 575 / 575 2308 / 2308 Weight 87.2 kg Intake: IV 850 / 850 500 / 500 Neosynephrine Inj 40 MG In NS 500 / 500 500 / 500 Inj 496 ML @ 40 MCG/MIN 30 mls/ hr IV.CONT TITRATE PRN Rx#: [id number] Ofirmev Inj 1,000 mg In 100 ml 100 / 100 @ 400 mls/hr IV.SIG Q8H PRN Rx# :[id number] Levophed Inj 4 MG In NS Inj 246 250 / 250 ML @ 2 MCG/MIN 7.5 mls/hr IV. SIG TITRATE PRN Rx#:[id number] Intake (Blood Product) Amt 0 / 0 1808 / 1808 Plasma Thawed 5 Day Cp2d Unit 0 / 0 358 / 358 [id number] Plasma Thawed 5 Day Cp2d Unit 307 / 307 [id number] Plasma Thawed 5 Day Cp2d Unit 250 / 250 [id number] Pre-Pooled Cryo Thawed 10units 224 / 224 Unit [id number] Pre-Pooled Cryo Thawed 10units 221 / 221 Unit [id number] Pre-Pooled Cryo Thawed 10units 222 / 222 Unit [id number] Pre-Pooled Cryo Thawed 10units 226 / 226 Unit [id number] Output: Urine Amount (Catheter) 75 / 75 Indwelling Urethral Catheter 75 / 75 Gastric Drainage 200 / 200 Oral 200 / 200 Results - Lab Results 11/05/17 11:55 11/05/17 11:55 Most recent lab results ABG pH 7.27 (7.380-7.420) L* 11/05/17 05:53 ABG pCO2 38 mmHg (38-42) 11/05/17 05:53 ABG pO2 214 mmHg (61-120) H 11/05/17 05:53 ABG HCO3 17 mmol/L (22-26) L 11/05/17 05:53 Calcium 7.3 mg/dL (8.5-10.1) L* D 11/05/17 11:55 Assessment and Plan - Assessment (1) Acute renal failure Code(s): N17.9 - Acute kidney failure, unspecified Status: Acute (2) Cardiopulmonary arrest with successful resuscitation Code(s): I46.9 - Cardiac arrest, cause unspecified Status: Acute (3) Acute spontaneous subarachnoid intracranial hemorrhage Code(s): I60.9 - Nontraumatic subarachnoid hemorrhage, unspecified Status: Acute - Attending Attestation patient was seen and examined. Agree with above assessment and plan. He is unstable for any form of renal replacement therapy. Discussed with Dr. Chamorro. <Chantal Churchill - Last Filed: 11/05/17 14:55> (1) Acute renal failure Qualifiers: Acute renal failure type: with acute tubular necrosis Qualified Code(s): N17.0 - Acute kidney failure with tubular necrosis <Simon Carson - Last Filed: 11/05/17 17:07> (1) Acute renal failure Qualifiers: Acute renal failure type: with acute tubular necrosis Qualified Code(s): N17.0 - Acute kidney failure with tubular necrosis
[2017-11-05 21:45] LABS: Sodium 158 meq/L (136-145)
--- NOTE | 2017-11-05 22:10 | ECG ---
Date Performed: 11/04/2017 Time Performed: 22:52:06 PTAGE: 37 years EKG: SINUS TACHYCARDIA INDETERMINATE AXIS POSSIBLE RIGHT VENTRICULAR CONDUCTION DELAY POSSIBLE I NFERIOR MYOCARDIAL INFARCTION ST DEVIATION AND MODERATE T-WAVE ABNORMALITY ABNORMAL ECG NO PREVIOUS TRACING DOCTOR: Eloise Hines Interpretating Date/Time 11/05/2017 22:08:19
[2017-11-06] MEDS: DOPamine Inj 800 MG in Sodium Chlor 0.9% Inj 500 ML IV.CONT PRN ×2
--- NOTE | 2017-11-06 04:03 | XR ---
EXAM DATE: 11/06/2017 3:51 AM EDT AGE/SEX: 37 years / Male INDICATIONS: Respiratory disease. CLINICAL DATA: This is the patient's subsequent encounter. Patient reports that signs and symptoms h ave been present for 3 days and indicates a pain score of Nonresponsive. MEDICAL/SURGICAL HISTORY: None. None. COMPARISON: [facility] [place], CHEST 1V SINGLE AP, 11/05/2017. . FINDINGS: Portable AP view of the chest demonstrates a normal-sized cardiac silhouette. ETT, nasogastric tube, and left subclavian central line remains present. Multiple EKG lines overlie the patient. There is bi basilar airspace opacity, right greater than left, with blunting of the right costophrenic angle. No pneumothorax is visualized. CONCLUSION: Increased bibasilar airspace opacity representing either atelectasis or consolidation. A small right pleural effusion is present. Electronically signed by: Pedro Pablo Humphreys MD 11/06/2017 4:02 AM EDT
[2017-11-06 05:12] LABS: Hematocrit 25.3 % (39.0-51.0); Hemoglobin 7.4 gm/dL (13.0-17.0); Mean Corpuscular Hemoglobin 32.5 pg (27.0-34.0); Mean Corpuscular Volume 110.4 fL (80.0-100.0); Mean Platelet Volume 5.9 fL (7.0-11.0); Platelet Count 41 th/mm3 (150-450); Red Blood Count 2.29 mil/mm3 (4.50-5.90); Red Cell Distribution Width 18.2 % (11.6-17.2); White Blood Count 3.3 th/mm3 (4.0-11.0)
[2017-11-06] MEDS: Chlorhexidine Gluconate 2% 1 Pack (2 Cloths) TOPICAL SCH (05:13)
[2017-11-06] MEDS: Phenylephrine Inj 160 MG in Sodium Chlor 0.9% Inj 484 ML IV.CONT PRN ×3 (05:15)
[2017-11-06] MEDS: Norepinephrine Inj 16 MG in Sodium Chlor 0.9% Inj 234 ML IV.CONT PRN (05:16)
[2017-11-06 05:25] LABS: Mean Corpuscular HGB Conc 29.4 % (32.0-36.0)
[2017-11-06] MEDS: Dextrose 5%/NaCl 0.9% Inj 1,000 ML IV.SIG SCH (06:00)
--- NOTE | 2017-11-06 06:45 | P.PNCC ---
Subjective Subjective Remarks/Hospital Course: 37-year-old male who was brought to the ER by police officers. 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 Patient was intubated by ER physician and ACLS protocol was continued for asystole. He had return of spontaneous circulation following 20 minutes of CPR/ACLS. Patient was hypotensive following return of spontaneous circulation and received 3 L normal saline bolus and was started on dopamine for pressor support. He had a GCS of 3T per ER physician subsequently and was placed on mechanical ventilation. Patient was positive for cocaine on his tox screen. He was accepted for admission by critical care medicine service. When I evaluated him in the ER he was comatose, orally intubated on mechanical ventilation. History was obtained by reviewing records and discussion with ER physician and nursing staff. 11/05/17: Critical care re evaluation: patient remains extremely critical. He is currently on maximum dose of Levophed, dopamine, Jevon-Synephrine. CT of the head at night had shown subarachnoid hemorrhage and cerebral edema. Clinical exam is concerning for severe anoxic brain injury. GCS remains 3T off all sedation. I am unable to elicit pupillary or corneal reflex and no doll's eye. Labs indicate profound DIC 11/06: Continued critically ill with absent brain stem reflexes and multisystem organ failure. Coagulopathy persists and anuria has developed. Peripheral perfusion is compromised and we will need to reduce vasopressor therapy and attempt to substitute with volume. Objective Vital Signs / I&O: Vital Signs 11/05/17 08:00 11/05/17 08:34 11/05/17 08:39 Temperature 99 F 98.6 F 98.6 F Pulse Rate 104 H 115 H 113 H Respiratory Rate 20 20 20 Blood Pressure 100/61 117/76 111/71 Pulse Oximetry 11/05/17 09:22 11/05/17 09:47 11/05/17 09:51 Temperature 97.6 F Pulse Rate 105 H 104 H Respiratory Rate 20 20 20 Blood Pressure 115/73 Pulse Oximetry 11/05/17 09:52 11/05/17 10:20 11/05/17 10:21 Temperature 97 F L Pulse Rate 104 H 102 H Respiratory Rate 20 20 20 Blood Pressure 126/75 Pulse Oximetry 90 L 11/05/17 12:00 11/05/17 14:20 11/05/17 14:25 Temperature 95.7 F L 96.8 F L 96.8 F L Pulse Rate 99 H 106 H 105 H Respiratory Rate 20 20 20 Blood Pressure 133/81 104/59 L 104/62 Pulse Oximetry 11/05/17 16:00 11/05/17 17:43 11/05/17 20:00 Temperature 96.8 F L 96.8 F L Pulse Rate 106 H 110 H 103 H Respiratory Rate 20 20 20 Blood Pressure 105/56 L 81/32 L Pulse Oximetry 11/05/17 20:31 11/05/17 22:26 11/06/17 00:00 Temperature 97.2 F L Pulse Rate 103 H 103 H Respiratory Rate 20 20 20 Blood Pressure 101/33 L Pulse Oximetry 11/06/17 00:35 11/06/17 03:47 11/06/17 04:00 Temperature 97.7 F Pulse Rate 103 H 103 H Respiratory Rate 20 20 20 Blood Pressure 88/28 L Pulse Oximetry Intake & Output 11/05/17 11/05/17 11/06/17 06:59 18:59 06:59 Intake Total 1110 / 1110 3444.2 / 3444.2 3955 / 3955 Output Total 275 / 275 450 / 450 1815 / 1815 Balance 835 / 835 2994.2 / 2994.2 2140 / 2140 Weight 87.2 kg 89.5 kg Intake: IV 1110 / 1110 1616.2 / 1616.2 3955 / 3955 Intropin Inj 800 MG In NS Inj 500 / 500 500 / 500 500 ML @ 3 MCG/KG/MIN 8.77 mls/ hr IV.CONT TITRATE PRN Rx#: [id number] Levophed Inj 16 MG In NS Inj 500 / 500 234 ML @ 2 MCG/MIN 1.87 mls/hr IV.CONT TITRATE PRN Rx#: [id number] Neosynephrine Inj 160 MG In NS 500 / 500 500 / 500 1000 / 1000 Inj 484 ML @ 40 MCG/MIN 7.5 mls /hr IV.CONT TITRATE PRN Rx#: [id number] Pitressin Inj 40 UNIT In NS Inj 100 / 100 98 ML @ 0.04 UNITS/MIN 6 mls/ hr IV.CONT CONT STEVE Rx#: [id number] Sodium Chloride 3% Inj 500 ML @ 500 / 500 20 mls/hr IV.SIG CONT ONE Rx#: [id number] Ofirmev Inj 1,000 mg In 100 ml 100 / 100 @ 400 mls/hr IV.SIG Q8H PRN Rx# :[id number] D5W/Normal Saline Inj 1,000 ML 1000 / 1000 @ 125 mls/hr IV.SIG .Q8H STEVE Rx #:[id number] MVI-12 Inj 10 ML Thiamine Inj 511.2 / 511.2 100 MG Folvite Inj 1 MG In NS Inj 500 ML @ 125 mls/hr IV.SIG Q24H STEVE Rx#:[id number] Levophed Inj 4 MG In NS Inj 246 250 / 250 ML @ 2 MCG/MIN 7.5 mls/hr IV. SIG TITRATE PRN Rx#:[id number] NS Inj 250 ML @ 15 mls/hr IV. 250 / 250 SIG ONCE STEVE Rx#:[id number] Keppra Inj 500 MG In NS Inj 100 105 / 105 105 / 105 ML @ 400 mls/hr IV.SIG Q12H STEVE Rx#:[id number] Tube Irrigant 20 / 20 Intake (Blood Product) Amt 0 / 0 1808 / 1808 Plasma Thawed 5 Day Cp2d Unit 0 / 0 358 / 358 [id number] Plasma Thawed 5 Day Cp2d Unit 307 / 307 [id number] Plasma Thawed 5 Day Cp2d Unit 250 / 250 [id number] Pre-Pooled Cryo Thawed 10units 224 / 224 Unit [id number] Pre-Pooled Cryo Thawed 10units 221 / 221 Unit [id number] Pre-Pooled Cryo Thawed 10units 222 / 222 Unit [id number] Pre-Pooled Cryo Thawed 10units 226 / 226 Unit [id number] Output: Stool 1800 / 1800 Urine Amount (Catheter) 75 / 75 450 / 450 15 / 15 Indwelling Urethral Catheter 75 / 75 450 / 450 15 / 15 Gastric Drainage 200 / 200 0 / 0 Oral 200 / 200 0 / 0 Other: Date of Last Bowel Movement 11/05/17 11/06/17 # Bowel Movements 1 # Incontinent Bowel Movements 1 Result Diagrams: 11/06/17 04:45 11/05/17 19:30 Objective Remarks: GEN: Comatose patient critically ill, remains on maximum doses of 3 pressors. HEENT orally intubated,No pallor, no icterus, continued profusely bleeding from mouth and nostrils Neck: No JVD Chest/Pulm: on mech vent, good air entry bilaterally, scattered rhonchi. No spontaneous breath noted CVS: S1-S2 regular, no murmur. Currently on Levophed at 30 mcg/min, Jevon- Synephrine at 400 mcg/kg/min, dopamine at 30 mcg/kg/min GI/abdomen: soft, mildly distended, quiet. Extremities: tepid bilaterally, skin diaphoretic NEURO: Patient remains unresponsive comatose, GCS 3 T. Pupils 4 mm, nonreactive. No corneal reflex, no doll's eye, no withdrawal to deep pain no reflexes. No spontaneous breathing above the vent. No cough or gag. Assessment and Plan - Assessment and Plan Plan: 37-year-old male with: ASSESSMENT: Severe anoxic brain injury Anoxic encephalopathy Cardiac arrest status post CPR (asystole) Acute subarachnoid hemorrhage Cerebral edema Refractory shock Severe metabolic acidosis/lactic acidosis Acute respiratory failure on mechanical ventilation Acute kidney failure Severe DIC Hypocalcemia EtOH positive/Cocaine positive Shock liver PLAN: Neuro: -GCS remains 3T without any sedation. Clinical exam concerning for severe anoxic brain injury -Check EEG. At this time there is no evidence of brainstem activity -Add Keppra for seizure prophylaxis -Currently on normal saline 84 mL/h, 3% at 40 mL/h -Keep sodium 150-155 -Hold further doses of mannitol due to acute kidney failure -Cocaine positive. -Neurosurgery Dr. Wright Cardiovascular: -Status post multiple fluid (4L NS) boluses. -Currently on Levophed, dopamine, Jevon-Synephrine at maximum doses -2D echo in a.m. to assess LV function. Follow cardiac enzymes. -Initiate Efrain Trac monitoring -Need to reduce vasopressors. Pulmonary: -Continue mechanical ventilation, vent bundle, bronchodilators as needed. -Continue hyperventilating for metabolic acidosis. -Send sputum culture -C&S sputum for fever GI/liver: -N.P.o. for now. IV famotidine -Severe transaminitis secondary to shock liver Renal/: -IV hydration, strict intake output, monitor and replete electrolytes, follow BUN/creatinine. -Nephrology consulted, check UA, check renal ultrasound -Volume replacement as trade for vasopressors. ID: -No antibiotics at this time. Endocrine: -Watch for hypoglycemia, SSI for glycemic control if needed. Heme: -Severe coagulopathy secondary to DIC and liver failure -Transfuse 4 units FFP, 2 cryoprecipitate Prophylaxis: -Pepcid/SCDs. Chemical DVT prophylaxis contraindicated Overall impression: Currently patient remains critical with guarded prognosis. Clinically he appears to have sustained severe anoxic brain injury as evidenced by clinical exam and cerebral edema. He remains in profound shock, on maximum dose of 3 pressors. Prognosis poor in face of MODS and cerebral edema. Critical Care 60 mins aside from procedures.
[2017-11-06 07:33] LABS: Anion Gap 23 meq/L (5-15); Blood Urea Nitrogen 32 mg/dL (7-18); Carbon Dioxide 7.2 meq/L (21.0-32.0); Chloride 130 meq/L (98-107); Glomerular Filtration Rate 10 mL/min (>89); Glucose,Random 65 mg/dL (74-106)
[2017-11-06 07:34] LABS: Calcium 6.2 mg/dL (8.5-10.1)
--- NOTE | 2017-11-06 07:36 | P.DS ---
Date of admission: 11/05/17 01:06 Primary care physician: No Primary Care Physician Attending physician on discharge: Marcos Isaac Anticipated date of discharge: 11/06/17 Brief History from admission: 37-year-old male who was brought to the ER by police officers. 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 Patient was intubated by ER physician and ACLS protocol was continued for asystole. He had return of spontaneous circulation following 20 minutes of CPR/ACLS. Patient was hypotensive following return of spontaneous circulation and received 3 L normal saline bolus and was started on dopamine for pressor support. He had a GCS of 3T per ER physician subsequently and was placed on mechanical ventilation. Patient was positive for cocaine on his tox screen. He was accepted for admission by critical care medicine service. When I evaluated him in the ER he was comatose, orally intubated on mechanical ventilation. History was obtained by reviewing records and discussion with ER physician and nursing staff. DS: Diagnosis - Discharge Diagnosis (1) Cardiopulmonary arrest with successful resuscitation Status: Acute (2) Cocaine abuse with intoxication Status: Acute (3) Acute renal insufficiency Status: Acute (4) Rhabdomyolysis Status: Acute (5) Non-ST elevated myocardial infarction (non-STEMI) Status: Acute (6) Acute spontaneous subarachnoid intracranial hemorrhage Status: Acute (7) Brain anoxic injury Status: Acute (8) Anoxic cerebral edema Status: Acute DS: Summary Hospital Course: Following cardiopulmonary arrest in the emergency department shortly after admission the patient continued to undergo resuscitative efforts involving ongoing mechanical ventilation and continuous correction of fluid electrolytes and acid-base abnormalities. A CAT scan of the head demonstrated cerebral edema with effacement of the cisterns and subarachnoid blood possibly related to severe hypertension associated with cocaine prior to admission. Other concerns include liver shock with transaminitis, acute kidney injury, severe coagulopathy including disseminated intravascular coagulation, and evidence of severe anoxic brain injury manifested by a Lizz Coma Scale of 3. At no time since admission have we been able to demonstrate any brainstem reflexes or peripheral response to stimulation. He has had no cough or gag reflex and no spontaneous respiratory effort over the ventilator. The metabolic acidosis is been ongoing requirement for vasopressor support is included high-dose Levophed , Jevon-Synephrine, and vasopressin. At 0649 this morning the patient developed cardiac arrest which quickly deteriorated from PEA to asystole. Full ACLS protocol CPR was instituted immediately and I was present in my office directly adjacent to the patient's room. I participated from the start in the resuscitation. Despite our best efforts the patient remained asystolic and was pronounced from asystolic cardiac arrest at 0720 hours on November 06. His family was present during the resuscitative efforts and was informed immediately of his . - Time Spent with Patient Total time spent providing and/or coordinating discharge services: Greater than 30 minutes Exam Vital signs: Vital Signs 11/05/17 08:00 11/05/17 08:34 11/05/17 08:39 Temperature 99 F 98.6 F 98.6 F Pulse Rate 104 H 115 H 113 H Respiratory Rate 20 20 20 Blood Pressure 100/61 117/76 111/71 Pulse Oximetry 11/05/17 09:22 11/05/17 09:47 11/05/17 09:51 Temperature 97.6 F Pulse Rate 105 H 104 H Respiratory Rate 20 20 20 Blood Pressure 115/73 Pulse Oximetry 11/05/17 09:52 11/05/17 10:20 11/05/17 10:21 Temperature 97 F L Pulse Rate 104 H 102 H Respiratory Rate 20 20 20 Blood Pressure 126/75 Pulse Oximetry 90 L 11/05/17 12:00 11/05/17 14:20 11/05/17 14:25 Temperature 95.7 F L 96.8 F L 96.8 F L Pulse Rate 99 H 106 H 105 H Respiratory Rate 20 20 20 Blood Pressure 133/81 104/59 L 104/62 Pulse Oximetry 11/05/17 16:00 11/05/17 17:43 11/05/17 20:00 Temperature 96.8 F L 96.8 F L Pulse Rate 106 H 110 H 103 H Respiratory Rate 20 20 20 Blood Pressure 105/56 L 81/32 L Pulse Oximetry 11/05/17 20:31 11/05/17 22:26 11/06/17 00:00 Temperature 97.2 F L Pulse Rate 103 H 103 H Respiratory Rate 20 20 20 Blood Pressure 101/33 L Pulse Oximetry 11/06/17 00:35 11/06/17 03:47 11/06/17 04:00 Temperature 97.7 F Pulse Rate 103 H 103 H Respiratory Rate 20 20 20 Blood Pressure 88/28 L Pulse Oximetry Intake & Output 11/05/17 11/06/17 11/06/17 18:59 06:59 18:59 Intake Total 3444.2 / 3444.2 3955 / 3955 Output Total 450 / 450 1815 / 1815 Balance 2994.2 / 2994.2 2140 / 2140 Weight 89.5 kg Intake: IV 1616.2 / 1616.2 3955 / 3955 Intropin Inj 800 MG In NS Inj 500 / 500 500 / 500 500 ML @ 3 MCG/KG/MIN 8.77 mls/ hr IV.CONT TITRATE PRN Rx#: [id number] Levophed Inj 16 MG In NS Inj 500 / 500 234 ML @ 2 MCG/MIN 1.87 mls/hr IV.CONT TITRATE PRN Rx#: [id number] Neosynephrine Inj 160 MG In NS 500 / 500 1000 / 1000 Inj 484 ML @ 40 MCG/MIN 7.5 mls /hr IV.CONT TITRATE PRN Rx#: [id number] Pitressin Inj 40 UNIT In NS Inj 100 / 100 98 ML @ 0.04 UNITS/MIN 6 mls/ hr IV.CONT CONT STEVE Rx#: [id number] Sodium Chloride 3% Inj 500 ML @ 500 / 500 20 mls/hr IV.SIG CONT ONE Rx#: [id number] D5W/Normal Saline Inj 1,000 ML 1000 / 1000 @ 125 mls/hr IV.SIG .Q8H STEVE Rx #:[id number] MVI-12 Inj 10 ML Thiamine Inj 511.2 / 511.2 100 MG Folvite Inj 1 MG In NS Inj 500 ML @ 125 mls/hr IV.SIG Q24H STEVE Rx#:[id number] NS Inj 250 ML @ 15 mls/hr IV. 250 / 250 SIG ONCE STEVE Rx#:[id number] Keppra Inj 500 MG In NS Inj 100 105 / 105 105 / 105 ML @ 400 mls/hr IV.SIG Q12H STEVE Rx#:[id number] Tube Irrigant 20 / 20 Intake (Blood Product) Amt 1808 / 1808 Plasma Thawed 5 Day Cp2d Unit 358 / 358 [id number] Plasma Thawed 5 Day Cp2d Unit 307 / 307 [id number] Plasma Thawed 5 Day Cp2d Unit 250 / 250 [id number] Pre-Pooled Cryo Thawed 10units 224 / 224 Unit [id number] Pre-Pooled Cryo Thawed 10units 221 / 221 Unit [id number] Pre-Pooled Cryo Thawed 10units 222 / 222 Unit [id number] Pre-Pooled Cryo Thawed 10units 226 / 226 Unit [id number] Output: Stool 1800 / 1800 Urine Amount (Catheter) 450 / 450 15 / 15 Indwelling Urethral Catheter 450 / 450 15 / 15 Gastric Drainage 0 / 0 Oral 0 / 0 Other: Date of Last Bowel Movement 11/05/17 11/06/17 # Bowel Movements 1 # Incontinent Bowel Movements 1 Narrative: . Results Procedures completed during hospitalization: None Labs on day of discharge: Labs from last 24 hours 11/06/17 11/06/17 11/05/17 06:09 04:45 19:51 WBC 3.3 L D RBC 2.29 L Hgb 7.4 L D Hct 25.3 L MCV 110.4 H D MCH 32.5 MCHC 29.4 L RDW 18.2 H D Plt Count 41 L D MPV 5.9 L PT INR APTT Fibrinogen Puncture Site Patient Temperature O2 Saturation ABG pH ABG pCO2 ABG pO2 ABG HCO3 ABG O2 Content ABG Base Excess ABG Methemoglobin Dmitry Test Hemoglobin Carboxyhemoglobin O2 Delivery Device Vent Setting Inspired O2 Critical Value Sodium Pending Potassium Pending Chloride Pending Carbon Dioxide Pending Anion Gap Pending BUN Pending Creatinine Pending Estimated GFR POC Glucose 92 Random Glucose Pending Osmolality Pending Lactic Acid Calcium Pending Prot Corrected Calcium Total Bilirubin Pending AST Pending ALT Pending Alkaline Phosphatase Pending Total Creatine Kinase Pending Total Protein Pending Albumin Pending Blood Bank Comment 11/05/17 11/05/17 11/05/17 19:30 16:00 13:07 WBC RBC Hgb Hct MCV MCH MCHC RDW Plt Count MPV PT INR APTT Fibrinogen Puncture Site Patient Temperature O2 Saturation ABG pH ABG pCO2 ABG pO2 ABG HCO3 ABG O2 Content ABG Base Excess ABG Methemoglobin Dmitry Test Hemoglobin Carboxyhemoglobin O2 Delivery Device Vent Setting Inspired O2 Critical Value Sodium 158 H* Potassium Chloride Carbon Dioxide Anion Gap BUN Creatinine Estimated GFR POC Glucose 72 Random Glucose Osmolality 343 H Lactic Acid Calcium Prot Corrected Calcium Total Bilirubin AST ALT Alkaline Phosphatase Total Creatine Kinase Total Protein Albumin Blood Bank Comment 11/05/17 11/05/17 11/05/17 11:55 11:55 11:55 WBC RBC Hgb Hct MCV MCH MCHC RDW Plt Count MPV PT 24.5 H D INR 2.4 APTT 42.5 H D Fibrinogen 76 L* Puncture Site Patient Temperature O2 Saturation ABG pH ABG pCO2 ABG pO2 ABG HCO3 ABG O2 Content ABG Base Excess ABG Methemoglobin Dmitry Test Hemoglobin Carboxyhemoglobin O2 Delivery Device Vent Setting Inspired O2 Critical Value Sodium 155 H D Potassium 4.3 Chloride 122 H D Carbon Dioxide 16.4 L Anion Gap 17 H BUN 21 H Creatinine 4.88 H Estimated GFR 16 L POC Glucose Random Glucose 46 L* Osmolality Lactic Acid Calcium 7.3 L* D Prot Corrected Calcium 8.1 L D Total Bilirubin 1.5 H AST 9714 H ALT 2902 H Alkaline Phosphatase 131 H Total Creatine Kinase Total Protein 5.7 L Albumin 2.6 L Blood Bank Comment 11/05/17 11/05/17 11/05/17 11:55 11:55 11:52 WBC 10.3 RBC 3.30 L Hgb 10.7 L D Hct 32.4 L MCV 98.2 MCH 32.4 MCHC 33.0 RDW 15.7 Plt Count 103 L MPV 8.9 PT INR APTT Fibrinogen Puncture Site Patient Temperature O2 Saturation ABG pH ABG pCO2 ABG pO2 ABG HCO3 ABG O2 Content ABG Base Excess ABG Methemoglobin Dmitry Test Hemoglobin Carboxyhemoglobin O2 Delivery Device Vent Setting Inspired O2 Critical Value Sodium Cancelled Potassium Chloride Carbon Dioxide Anion Gap BUN Creatinine Estimated GFR POC Glucose Random Glucose Osmolality 334 H Lactic Acid 8.0 H* Calcium Prot Corrected Calcium Total Bilirubin AST ALT Alkaline Phosphatase Total Creatine Kinase Total Protein Albumin Blood Bank Comment 11/05/17 11/05/17 11/05/17 07:37 07:36 05:53 WBC RBC Hgb Hct MCV MCH MCHC RDW Plt Count MPV PT INR APTT Fibrinogen Puncture Site Art line Patient Temperature 98.6 O2 Saturation 98 ABG pH 7.27 L* ABG pCO2 38 ABG pO2 214 H ABG HCO3 17 L ABG O2 Content 19.2 ABG Base Excess -8.7 L ABG Methemoglobin 1.2 Dmitry Test Present Hemoglobin 13.7 Carboxyhemoglobin 0.3 O2 Delivery Device Ventilator Vent Setting See comments Inspired O2 100 Critical Value Yes Sodium Potassium Chloride Carbon Dioxide Anion Gap BUN Creatinine Estimated GFR POC Glucose Random Glucose Osmolality Lactic Acid Calcium Prot Corrected Calcium Total Bilirubin AST ALT Alkaline Phosphatase Total Creatine Kinase Total Protein Albumin Blood Bank Comment - Impressions ITS Impressions Head CT 11/05/17 22:59 CONCLUSION: 1. Subarachnoid hemorrhage and cerebral edema suspected. . Chest X-Ray 11/06/17 06:00 CONCLUSION: Increased bibasilar airspace opacity representing either atelectasis or consolidation. A small right pleural effusion is present. Discharge Plan - Discharge Disposition Patient Disposition: 20 - Discharge Details Date/Time: 11/06/17 07:20 - Physicians Team Primary Care Provider: Primary Care Jen Hodges Attending Provider: Frankie Cast Other Providers: Rusty Wright MD ; Simon Carson MD ; Chantal Churchill, AUTOMOTIVE DESIGNER
[2017-11-06 07:40] LABS: Alanine Aminotransferase 3657 U/L (12-78); Albumin 1.4 g/dL (3.4-5.0); Aspartate Aminotransferase Greater Than 20000 U/L (15-37); Total Protein 4.1 g/dL (6.4-8.2)
[2017-11-06 07:41] LABS: Alkaline Phosphatase 214 U/L (45-117)
[2017-11-06 07:45] LABS: Sodium 160 meq/L (136-145)
[2017-11-06 08:36] LABS: Creatine Kinase Greater Than 80000 U/L (39-308)
[2017-11-06 08:39] LABS: Potassium 7.3 meq/L (3.5-5.1)
[2017-11-06 09:19] LABS: Creatine Kinase MB 922.7 ng/mL (0.5-3.6)
[2017-11-06] MEDS ORDERED: Regadenoson Inj 0.4 MG/5 ML Syringe IV.PUSH ONE (15:23)
== END 2017-11-06 09:00 | disposition expired ==
LOC: NEPC 22:09 → NEDA 11-05 01:06 → N03 11-05 02:15
PROVIDERS: ADMIT Internal Medicine Critical Care Medicine; ATTEND Internal Medicine Critical Care Medicine